=== PATIENT | female | born 1945 | race Caucasian/White ===

== ENCOUNTER 2025-07-26 11:20 | Emergency (ER) | payer MEDICARE, SELFPAY ==
--- OUTSIDE RECORDS SUMMARY | 2025-07-25 13:30 | XMS_ITS | Encounter Summary ---
Author Organization [facility] Address [address] [place] [phone] Care Team Providers Care Conflicts Analyst Name Role Phone Avani Banks MD Primary Care Provider Reason for Visit * Reason Comments Pre-op Exam Encounter Details Date Type Department Care Team (Late st Contact Info) Description 07/25/2025 1:30 PM EDT Consult Urogynecology [address] [phone] Tiffanie Hooks MD 580 [facility] 205 [place] [address] Prolapse of anterior vaginal wall (Primary Dx); [...] Description 08/21/2025 11:30 AM EST Hospital Encounter [facility] OR [address] [place] [address], [place] [phone] Tiffanie Hooks MD [address] [address] 08/21/2025 11:30 AM EST - 08/21/2025 4:30 PM EST Surgery [facility] OR [address] [place] [phone] Tiffanie Hooks MD [address] [address] HYSTERECTOMY VAGINAL BSO [[id number] (CPT )] 09/07/2025 3:15 PM EST Office Visit Urogynecology [address] [phone] Aimee Stevens NP 580 [facility] [address] [place] [address] 09/18/2025 11:00 AM EST Office Visit Adult Medicine [address] [phone] Avani Banks MD [address] [place] [address] 10/03/2025 1:15 PM EST Office Visit Orthopedic Surgery - [address] [phone] Blas Sanchez, DPM [address] [place] [phone] 10/04/2025 11:30 AM EST Office Visit Urogynecology [address] [phone] Tiffanie Hooks MD 580 [facility] [address] [place] [address] Scheduled Procedures Name Priority Associated Diagnoses Date/Ti [...] AM EST documented as of this encounter Goals Goal Patient Goal Type Associated Problems Recent Progress Patient-Stated? Author Autogenera chris Goal Care Plan Autogenerated Problem No Mary Jane Craig documented as of this encounter Visit Diagnoses Diagnosis Prolapse of anterior vaginal wall- Primary Postoperative pain Other acute postoperative pain Uterine prolapse Uterine prolapse without mention of vaginal wall prolapse SARIKA (stress urinary incontinence, female) Uterine prolapse Uterine prolapse without mention of vaginal wall prolapse Cystocele with rectocele Female stress incontinence documented in this encounter Additional Health Concerns Active Problems Noted Date Diagnosed Date Autogenerated Problem 07/23/2025 documented as of this encounter Care Teams Conflicts Analyst Relationship Specialty Start Date End Date Avani Banks MD 4 [place] [address] PCP - General 08/06/09 documented as of this encounter
--- NOTE | ~2025-07-26 | CT_ITS ---
EXAMINATION: CT CHEST ANGIOGRAPHY WITH IV CONTRAST INDICATION: ?chest mass, new onset afib, assess mass, r/o PE COMPARISON: Previous chest x-ray most recent from earlier the same day TECHNIQUE: Helical CT scan of the chest was performed following administration of intravenous contrast (65 mL Omnipaque 350). The contrast bolus was timed to optimally opacify the pulmonary arteries. Thin sections were obtained through the pulmonary arteries. Coronal and sagittal reformatted images were generated. 3D/MIP reconstructed images are also obtained and reviewed. This CT exam was performed with one or more of the following dose reduction techniques: automated exposure control, adjustment of the mA and/or kV according to patient size, use of iterative reconstruction technique. DLP: 201 mGy-cm CHEST: THYROID: The thyroid gland is unremarkable. PULMONARY ARTERIES: No intraluminal filling defects are identified within the pulmonary arteries to suggest pulmonary emboli. Coronary arteries are normal in caliber, main pulmonary artery measuring 2 cm. No evidence of right heart strain. No reflux of contrast into the liver. LUNGS: Elevated right hemidiaphragm. Minimal scarring or subsegmental atelectasis in the right lower lobe. Mild biapical pleural and parenchymal scarring. Lungs are otherwise clear. MEDIASTINUM: There is no mediastinal lymphadenopathy. Perlita esophagus and small esophageal hernia. NAILA: There is no hilar lymphadenopathy. CARDIOVASCULATURE: The heart is normal in size. There is no pericardial effusion. The thoracic aorta is normal in caliber but tortuous with moderate calcification.. DEGREE OF CORONARY CALCIFICATION: moderate PLEURA: There is no pleural effusion. No pneumothorax. Elevated right hemidiaphragm. No mass. MAIN AIRWAYS: The mainstem bronchi and proximal branches are patent. AXILLA: There is no axillary lymphadenopathy. UPPER ABDOMEN: 3.2 cm low-attenuation right renal lesion probably representing a cyst. BONES AND SOFT TISSUES: Degenerative changes of the spine and mild scoliosis. CT/CT angio chest PE protocol IMPRESSION: No evidence of pulmonary embolism. Elevated right hemidiaphragm. No evidence of mass. Patulous esophagus and small esophageal hernia. Electronically signed by: Eliane Patterson MD 07/26/2025 02:30 PM EDT
--- NOTE | ~2025-07-26 | XR_ITS ---
EXAMINATION: XR CHEST 1 VIEW HISTORY: CP COMPARISON: Comparison is made with the prior examination dated 04/17/2019. FINDINGS: A single AP portable view of the chest performed at 12:10 PM is submitted. There is a new rounded density at the right lung base which could represent a diaphragmatic hernia or a pleural mass. The lungs are clear. There is no pleural effusion, pneumothorax, or pulmonary vascular congestion. The heart is normal in size. There is degenerative disc disease of the spine. XR/XR chest 1V IMPRESSION: New rounded density at the right lung base which could represent a diaphragmatic hernia or a pleural mass. Chest CT is recommended. Electronically signed by: Mikhail Martinez MD 07/26/2025 12:25 PM EDT
--- OUTSIDE RECORDS SUMMARY | 2025-07-26 10:00 | XMS_ITS | Encounter Summary ---
Author Organization [facility] Address [address] [place] [address] Care Team Providers Care Sap Integration Architect Name Role Phone Avani Banks MD Primary Care Provider [phone] Reason for Visit * Reason Comments Pre-op Exam Dr Hooks 08/21/25 Hys terectomy Encounter Details Date Type Department Care Team (Late st Contact Info) Description 07/26/2025 10:00 AM EDT Consult Adult Medicine [address] [phone] Avani Banks MD [address] [place] [address] Pre-op examination (Primary Dx); Dizziness; Atrial fibrillation, [...] established that daughter will transport patient to [place] emergency room (at patient/family strong request), without [...] RN - 07/26/2025 10:00 AM EDT Called [facility] with and expect for this pt. New onset A-fib pt. Declining ambulance , daughter will take her . No cp or sob, skin warm and dry , no c/o fever or chills. documented in this encounter Plan of Treatment Upcoming Encounters Date Type Department Care Team (Late st Contact Info) Description 08/21/2025 11:30 AM EST Hospital Encounter [address] [phone] Tiffanie Hooks MD [address] [address] 08/21/2025 11:30 AM EST - 08/21/2025 4:30 PM EST Surgery [address] [phone] Tiffanie Hooks MD [address] [address] HYSTERECTOMY VAGINAL BSO [07684 (CPT )] 09/07/2025 3:15 PM EST Office Visit Urogynecology [address] [phone] Aimee Stevens NP [address] [address] 09/18/2025 11:00 AM EST Office Visit Adult Medicine [address] [phone] Avani Banks MD [address] [place] [address] 10/03/2025 1:15 PM EST Office Visit Orthopedic Surgery - [address] [phone] Blas Sanchez, FRANCISCA [address] [place] [phone] 10/04/2025 11:30 AM EST Office Visit Urogynecology - [place] [address] [place] [phone] Tiffanie Hooks MD [address] [place] [address] [address] [place] [address] Scheduled Procedures Name Priority Associated Diagnoses Date/Ti [...] Jane Craig documented as of this encounter Procedures Procedure Name Priority Date/Time Associated Diagnosis Comments ECG 12-LEAD Routine 07/26/2025 11:23 AM EDT Pre-op examination documented in this encounter Results * ECG 12 lead (07/26/2025 11:23 AM EDT) Narrative Avani Banks MD - 07/26/2025 11:23 AM EDT EKG in my office showed atrial fibrillation with rapid ventricular response of 169, with PVC. Avani Banks MD ECG ORDERABLES Final Result [...] 07/25/2025 07/26/2025 documented as of this encounter Additional Health Concerns Active Problems Noted Date Diagnosed Date Autogenerated Problem 07/23/2025 documented as of this encounter Care Teams Sap Integration Architect Relationship Specialty Start Date End Date Avani Banks MD [address] [place] [address] PCP - General 08/06/09 documented as of this encounter
--- NOTE | 2025-07-26 11:22 | ECG_ITS ---
Test Reason : NEW ONSET AFIB Blood Pressure : */* mmHG Vent. Rate : 108 BPM Atrial Rate : * BPM P-R Int : * ms QRS Dur : 78 ms QT Int : 328 ms P-R-T Axes : * 21 101 degrees QTcB Int : 439 ms Normal sinus rhythm Premature atrial complexes Nonspecific T wave abnormality Abnormal ECG When compared with ECG of 17-Apr-2018 11:55, PACs noted Referred By: Crissy Ramos Electronically Signed By: ATIF BARKER
--- NOTE | 2025-07-26 11:32 | ED_ITS ---
HPI - General Adult General Chief complaint: Arrhythmia/Palpitations Stated complaint: A fib Time Seen by Provider: 07/26/25 11:30 Source: patient, family and RN notes reviewed Mode of arrival: ambulatory Limitations: no limitations History of Present Illness ED Provider: Charlotte Thompson PA-C HPI narrative: This is a 80-year-old female, with a past medical history of depression, who presents emergency department accompanied by her 2 daughters with concerns of abnormal EKG. Patient was at her preop appointment for a total hysterectomy due to uterine prolapse and they performed an EKG which showed that she was in atrial fibrillation. She has no history of AFib. She states that she had an episode of dizziness when she was changing positional changes, however this resolved after several sec of staying still. She states that she has not had any other episodes of dizziness. She does report that over the last several days she has had ?heartburn , however she is otherwise in her usual state of health. She denies any abdominal pain, nausea, vomiting or diarrhea. She denies any chest pain, shortness for breath, weakness, palpitations. No urinary symptoms. No other complaints or concerns at this time. MD complaint: Abnormal EKG Relieving factors: none Exacerbating factors: none Associated symptoms: denies other symptoms Related Data Previous Rx's ?Medication ?Instructions ?Recorded amiodarone 200 mg tablet 200 mg PO BID 30 days #60 ta bs 07/26/25 apixaban 2.5 mg tablet (Eliquis) 2.5 mg PO BID 30 days #60 tabs 07/26/25 Allergies Allergy/AdvReac Type Severity Reaction Status Date / Time oxycodone (Percodan) Allergy Unknown Unknown Verified 07/26/25 11:41 aspirin (From PERCODAN) AdvReac Intermediate BEHAVIORAL Verified 07/26/25 11:41 From PERCODAN AdvReac Intermediate BEHAVIORAL Uncoded 07/26/25 11:41 Review of Systems 2 Review of Systems: Constitutional : No Fever, No Chills ENT/Mouth : No sore throat, No Rhinorrhea Eyes: No Eye Pain, No Swelling, No Redness Cardiovascular : No Chest Pain, No SOB Respiratory : No Cough, No Sputum Gastrointestinal : No Nausea, No Vomiting, No Diarrhea, No abdominal Pain Genitourinary : No Dysuria, No Hematuria Musculoskeletal : No joint pain, No Myalgias, No Joint Swelling Skin : No Skin Lesions Neuro : No Weakness, No Numbness, No Headache All other systems reviewed and are negative Yes all other systems are reviewed and are negative Constitutional: Constitutional: Reports as per [facility] Past Medical History Attestation statement: The following information was validated with the patient. Social History Social History Advance Directives: No Advance Directives Information Provided: Yes Do you have a plan to hurt others: No Plan Physical Exam ED Vital Signs: Vital Signs - 24 hr 07/26/25 11:37 07/26/25 11:46 07/26/25 15:00 Temperature 97.9 F Pulse Rate 101 H 96 84 Respiratory Rate 19 18 17 Blood Pressure 117/81 107/81 114/71 Pulse Oximetry 95 92 95 Oxygen Delivery Method Room Air Room Air Room Air 07/26/25 18:06 Temperature 97.9 F Pulse Rate 89 Respiratory Rate 17 Blood Pressure 122/74 Pulse Oximetry 95 Oxygen Delivery Method Room Air BMI result Body Mass Index 26.6 Const General: cooperative, comfortable and no acute distress Orientation/consciousness: patient oriented x3 Limitations: no limitations [facility] Head: Yes normal to inspection, Yes normocephalic and Yes atraumatic Ears: hearing grossly normal bilaterally General nose exam: Normal external nose present Face and sinus: Yes normal facial exam Mouth: Normal oral and palatal mucosa present, oropharynx normal and moist mucous membranes Throat: Yes posterior oropharynx normal Eyes General: appearance normal, both eyes and all related structures Eyelids: Yes eyelids normal Conjunctivae: conjunctivae normal Sclerae: sclerae normal Pupils: Equal, round and reactive pupils present EOM: EOMs intact bilaterally Neck Neck: Yes normal visual inspection, Yes full ROM and Yes no lymphadenopathy Lymphatic: no lymphadenopathy noted Chest Chest palpation & inspection: normal inspection of the chest Resp Effort & Inspection: normal respiratory effort and able to speak in complete sentences Auscultation: clear to auscultation bilaterally, no crackles, no rales, no rhonchi and no wheezes Cardio Other: Irregularly irregular Heart sounds: S1 normal heart sound present and S2 normal heart sound present GI Other: Abdomen is soft, nontender, nondistended Inspection: Yes normal to inspection Skin General skin exam: no rashes or lesions noted Trauma: no lacerations or abrasions Wounds: no wounds Neuro General: patient oriented x3 and moves all extremities Cranial nerves: Yes Equal, round and reactive pupils present Extrem General: Yes normal to inspection Right upper extremity: normal to inspection Left upper extremity: normal to inspection Right lower extremity: normal to inspection Left lower extremity: normal to inspection Course Course Course Narrative: Rapid medical screening exam was performed. Patient stable at time of evaluation. 80 yo F presented to Afib with RVR from PCP office for preop visit for hysterectomy secondary to uterine prolapse. HR low 100's BP stable. ED provider notified. No cardiac history, no CP or SOB. Endorses dizziness today. Crissy Ramos, DO 07/26/25 1135 Medications Administered Discontinued Medications Generic Name Dose Route Start Last Admin Trade Name Freq PRN Reason Stop Dose Admin Amiodarone HCl 200 mg 07/26/25 16:22 07/26/25 17:20 Amiodarone Hcl 200 Mg Tablet PO 07/26/25 16:23 200 mg ONCE ONE Administration Apixaban 2.5 mg 07/26/25 16:22 07/26/25 17:20 Apixaban 2.5 Mg Tablet PO 07/26/25 16:23 2.5 mg ONCE ONE Administration Medical Decision Making Medical Decision Making [facility] Narrative: This is a 80-year-old female, with a past medical history of depression, who presents emergency department accompanied by her 2 daughters with concerns of abnormal EKG. On arrival, patient is well-appearing, appears to be under no acute distress. She is neurologically intact. She does report an episode of dizziness which only lasted for several sec and occurred with a positional change. While she was at a appointment earlier today she she had a concerning EKG as she had a rate of 169, in rhythm is concerning for possible AFib or a flutter. Repeat EKG upon arrival revealed that patient does have discernible P waves, unclear if this is a true AFib or sinus rhythm with PACs. Will obtain labs, monitor on work order clerk, obtain troponin, chest x-ray. We will continue to closely monitor and obtain Cardiology consultation for recommendations. 6:39 PM 07/26/2025 (Charlotte Thompson PA-C): Throughout patient's entire emergency department stay, she has been rate controlled, fluctuating between 80 and 100. She never had any episodes in which she was tachycardic, or a had any episodes of AFib or a flutter while she was here. Chest x-ray revealed possible chest mass versus hemidiaphragm, therefore we ordered a CTA to rule out mass. I discussed this with Dr. Ramos - ordered a CTA to rule out PE versus malignancy as if she truly has AFib she is at increased risk for PE, and if this is a true vas, this also causes her to be hypercoagulable. CTA does not show any evidence of a mass or pulmonary embolism. She does have a patulous esophagus and small esophageal hernia. I discussed this case with Dr. Cruz, who reviewed all EKGs, EKGs here in the department he state are sinus rhythm with PACs, and the 1st EKG may have been flutter. Given that patient has been asymptomatic, she is feeling well, normal troponins, Dr. Cruz states that she can go giving Eliquis 2.5 milligrams twice a day and amiodarone 200 milligrams twice a day. She will follow-up outpatient. I discussed this with my attending physician, who is in agreement with disposition. I discussed overall workup with patient as well as daughters at bedside. They understand and agree with this plan. Given strict precautions with being on anticoagulation. She understands the risks and benefits and would like to proceed with anticoagulation. Platelets as well as PT INR within normal limits. Patient was given the 1st dose in the department and she tolerated this well. Patient discharged with strict return precautions. EKG from outpatient preop appointment: Differential Diagnosis Differential Diagnoses: The differential diagnosis associated with the presentation includes AFib, a flutter, electrolyte derangement, PE Admission/Observation Consideration of admission/observation: Escalation of care including admission/observation considered Consult Healthcare Provider Management of the patient was discussed with: Manager Community Relations Dr. Cruz, cardiology Lab Data [facility] Lab Attestation statement: I reviewed the patient's lab results. Patient with no leukocytosis, stable H&H, chemistry within normal limits, TSH within normal limits. BNP normal for patient's age. Flat troponin. 07/26/25 11:39 07/26/25 11:39 Labs: Lab Results 07/26/25 07/26/25 07/26/25 Range/Units 11:39 11:39 15:38 WBC 8.1 (4.8-10.8) X10*3/uL RBC 4.90 (4.20-5.50) X10*6/uL Hgb 14.0 (12.0-16.0) g/dl Hct 43.2 (37.0-47.0) % MCV 88.2 (80.0-98.0) fL MCH 28.6 (27.0-33.0) pg MCHC 32.4 (31.0-35.0) g/dl RDW 12.5 (11.0-16.0) % Plt Count 420 H (160-400) X10*3/uL MPV 8.8 L (9.4-12.3) fL Immature Gran % (Auto) 1.1 H (0.0-0.4) % Neut % (Auto) 76.3 H (45-73) % Lymph % (Auto) 13.4 L (20-40) % [place] % (Auto) 7.5 (2-11) % Eos % (Auto) 1.1 (0-4) % Baso % (Auto) 0.6 (0-2) % Lymph # (Auto) 1.1 L (1.2-4.9) X10*3/uL [place] # (Auto) 0.6 (0.1-1.2) X10*3/uL Eos # (Auto) 0.1 (0.0-0.4) X10*3/uL Baso # (Auto) 0.1 (0.0-0.2) X10*3/uL Abs Immat Gran (auto) 0.09 H (0.00-0.03) X10*3/uL Absolute Neuts (auto) 6.2 (2.0-8.3) x10*3/uL Absolute Nucleated RBC 0.000 (0.0-0.012) X10*3/uL Nucleated RBC % (auto) 0.0 (0.0-0.2) /100WBC PT 11.3 (10.9-12.4) SEC INR 1.0 (0.9-1.1) APTT 28.6 (26.7-34.1) SEC Sodium 143 (135-145) mmol/L Potassium 4.1 (3.3-5.1) mmol/L Chloride 108 (96-108) mmol/L Carbon Dioxide 28 (22-29) mmol/L Anion Gap 11 L (12-20) BUN 33 H (9-16) mg/dL Creatinine 1.21 (0.5-1.4) mg/dL Estim Creat Clear Calc 29.9 Estimated GFR 43 Random Glucose 108 (60-115) mg/dL Calcium 9.6 (8.4-10.2) mg/dL Magnesium 1.9 (1.6-2.6) mg/dL Total Bilirubin 0.5 (0.0-1.0) mg/dL Direct Bilirubin 0.2 (0.0-0.5) mg/dL AST 25 (5-31) U/L ALT 15 (0-31) U/L Alkaline Phosphatase 60 (39-117) U/L Troponin I High Sens Cancelled 6.3 6.8 NT-Pro-B Natriuret Pep 925.0 H (<300) pg/mL Total Protein 7.4 (6.5-8.0) g/dL Albumin 4.1 (3.5-5.0) g/dL Lipase 14 (8-78) U/L TSH 2.33 (0.32-4.0) uIU/mL Independent Interpretation I performed an independent interpretation of an: EKG Interpretation: EKG performed 1126 reveal a ventricular rate of 108 beats per minute, it appears that patient does have P-waves, ventricular rate of 108 beats per minute, QT QTC 328/439, occasional PACs. ? A regularly irregular versus sinus rhythm with PACs EKG performed at 15 40 discernible P-waves noted, ventricular rate of 86 beats per minute, QT QTC 364 no STEMI. Occasional PACs Radiology Impression Discussion of test interpretation with radiology: I have reviewed the radiologist's reading. Radiologist Impression: NDICATION: ?chest mass, new onset afib, assess mass, r/o PE COMPARISON: Previous chest x-ray most recent from earlier the same day TECHNIQUE: Helical CT scan of the chest was performed following administration of intravenous contrast (65 mL Omnipaque 350). The contrast bolus was timed to optimally opacify the pulmonary arteries. Thin sections were obtained through the pulmonary arteries. Coronal and sagittal reformatted images were generated. 3D/MIP reconstructed images are also obtained and reviewed. This CT exam was performed with one or more of the following dose reduction techniques: automated exposure control, adjustment of the mA and/or kV according to patient size, use of iterative reconstruction technique. DLP: 201 mGy-cm CHEST: THYROID: The thyroid gland is unremarkable. PULMONARY ARTERIES: No intraluminal filling defects are identified within the pulmonary arteries to suggest pulmonary emboli. Coronary arteries are normal in caliber, main pulmonary artery measuring 2 cm. No evidence of right heart strain. No reflux of contrast into the liver. LUNGS: Elevated right hemidiaphragm. Minimal scarring or subsegmental atelectasis in the right lower lobe. Mild biapical pleural and parenchymal scarring. Lungs are otherwise clear. MEDIASTINUM: There is no mediastinal lymphadenopathy. Perlita esophagus and small esophageal hernia. NAILA: There is no hilar lymphadenopathy. CARDIOVASCULATURE: The heart is normal in size. There is no pericardial effusion. The thoracic aorta is normal in caliber but tortuous with moderate calcification.. DEGREE OF CORONARY CALCIFICATION: moderate PLEURA: There is no pleural effusion. No pneumothorax. Elevated right hemidiaphragm. No mass. MAIN AIRWAYS: The mainstem bronchi and proximal branches are patent. AXILLA: There is no axillary lymphadenopathy. UPPER ABDOMEN: 3.2 cm low-attenuation right renal lesion probably representing a cyst. BONES AND SOFT TISSUES: Degenerative changes of the spine and mild scoliosis. CT/CT angio chest PE protocol IMPRESSION: No evidence of pulmonary embolism. Elevated right hemidiaphragm. No evidence of mass. Patulous esophagus and small esophageal hernia. Electronically signed by: Eliane Patterson MD 07/26/2025 02:30 PM EDT Dictated By: Eliane Patterson MD Signed By: <Electronically signed by Eliane Patterson MD in OV> EXAMINATION: XR CHEST 1 VIEW HISTORY: CP COMPARISON: Comparison is made with the prior examination dated 04/17/2019. FINDINGS: A single AP portable view of the chest performed at 12:10 PM is submitted. There is a new rounded density at the right lung base which could represent a diaphragmatic hernia or a pleural mass. The lungs are clear. There is no pleural effusion, pneumothorax, or pulmonary vascular congestion. The heart is normal in size. There is degenerative disc disease of the spine. XR/XR chest 1V IMPRESSION: New rounded density at the right lung base which could represent a diaphragmatic hernia or a pleural mass. Chest CT is recommended. Electronically signed by: Mikhail Martinez MD 07/26/2025 12:25 PM EDT Dictated By: Mikhail Martinez MD Critical Care Time Critical Care Time Critical Care Time: Yes Total Critical Care Time: 45 Attestation: I have personally provided critical care time exclusive of time spent on separately billable procedures. Time includes review of lab data, radiology results, discussion with consultants, and monitoring for potential decompensation. Intervention performed as documented. Discharge Plan Discharge Clinical Impression: Arrhythmia, Atrial fibrillation Patient Disposition: Home, Self-Care Instructions: Atrial Flutter (ED) Additional Instructions: You were seen in the emergency department after a concerning EKG during your preop visit. Your EKGs were reviewed by the dry finisher, the 1st EKG that they reviewed was concerning for possible atrial flutter or atrial fibrillation which is a type of arrhythmia. Your other 2 EKGs did not reveal a true atrial fibrillation. The dry finisher recommends starting you on a blood thinner as well as a antiarrhythmic medication. Eliquis as a blood thinner to be taken twice a day. Please be advised that this increases your risk of bleeding, if you are to fall and hit your head, or have excessive bleeding, please seek emergent care. Amiodarone is an antiarrhythmic medication. Please take this as prescribed. Please follow-up with Cardiology, call tomorrow to make an appointment. If any new or worsening symptoms occur including but not limited to severe chest pain, shortness of breath, dizziness, blurred vision, severe headache, please seek emergent care. Prescriptions: New Eliquis 2.5 mg tablet 2.5 mg PO BID 30 Days Qty: 60 0RF amiodarone 200 mg tablet 200 mg PO BID 30 Days Qty: 60 0RF Referrals: [facility] [Provider Group] Interventions: ED Discharge Assessment Last Done: 07/26/25 18:06 Discharge Date/Time: 07/26/25 18:11 Print Language: Cuban
[2025-07-26 11:37] VITALS: BP 117/81; PULSE 101; RESP 19; TEMP 36.6; O2SAT 95; BMI 26.6
[2025-07-26 11:43] LABS: MANUAL DIFF FLAG NO
[2025-07-26 11:46] VITALS: BP 107/81; PULSE 96; RESP 18; O2SAT 92
[2025-07-26 11:50] LABS: Hematocrit 43.2 % (37.0-47.0); Hemoglobin 14.0 g/dl (12.0-16.0); Imm Gran Abs Auto 0.09 X10*3/uL (0.00-0.03); Imm Gran Pct Auto 1.1 % (0.0-0.4); Lymphocytes Absolute Auto 1.1 X10*3/uL (1.2-4.9); Mean Corpuscular HGB Conc 32.4 g/dl (31.0-35.0); Mean Corpuscular Hemoglobin 28.6 pg (27.0-33.0); Mean Corpuscular Volume 88.2 fL (80.0-98.0); NRBC Abs Auto 0.000 X10*3/uL (0.0-0.012); NRBC Pct Auto 0.0 /100WBC (0.0-0.2); Platelet Count 420 X10*3/uL (160-400); Red Blood Count 4.90 X10*6/uL (4.20-5.50); White Blood Count 8.1 X10*3/uL (4.8-10.8)
[2025-07-26 11:56] LABS: INTERNATIONAL NORM RATIO 1.0 (0.9-1.1); Prothrombin Time 11.3 SEC (10.9-12.4)
[2025-07-26 11:59] LABS: Partial Thromboplastin Time 28.6 SEC (26.7-34.1)
[2025-07-26 12:06] LABS: Alanine Aminotransferase 15 U/L (0-31); Albumin Level 4.1 g/dL (3.5-5.0); Alkaline Phosphatase 60 U/L (39-117); Anion Gap 11 (12-20); Aspartate Amino Transferase 25 U/L (5-31); Blood Urea Nitrogen 33 mg/dL (9-16); Calcium 9.6 mg/dL (8.4-10.2); Carbon Dioxide 28 mmol/L (22-29); Chloride 108 mmol/L (96-108); Creatinine Clr Calc Pharmacy 29.9; Estimated Glomerular Filt Rate 43; Lipase 14 U/L (8-78); Magnesium 1.9 mg/dL (1.6-2.6); Potassium 4.1 mmol/L (3.3-5.1); Sodium 143 mmol/L (135-145); Total Protein 7.4 g/dL (6.5-8.0)
[2025-07-26 12:08] LABS: NT Pro B Type Natriuretic Pept 925.0 pg/mL (<300); Troponin-I High Sensitivity 6.3 ng/L (<3.5-17.0)
--- NOTE | 2025-07-26 14:45 | ECG_ITS ---
Test Reason : REPEAT Blood Pressure : */* mmHG Vent. Rate : 86 BPM Atrial Rate : * BPM P-R Int : * ms QRS Dur : 86 ms QT Int : 364 ms P-R-T Axes : * 36 109 degrees QTcB Int : 435 ms Normal sinus rhythm Premature atrial complexes Premature ventricular complexes Nonspecific T wave abnormality Abnormal ECG When compared with ECG of 26-Jul-2025 11:26, No significant change was found Referred By: Charlotte Thompson Electronically Signed By: ATIF BARKER
[2025-07-26 15:00] VITALS: BP 114/71; PULSE 84; RESP 17; O2SAT 95
--- OUTSIDE RECORDS SUMMARY | 2025-07-26 15:45 | XMS_ITS | Encounter Summary ---
Author Organization [facility] Address [address] [place] [phone] Care Team Providers Care Retail Client Manager Name Role Phone Avani Banks MD Primary Care Provider [phone] Encounter Details Date Type Department Care Team (Late st Contact Info) Description 07/13/2025 Results Follow-Up Urogynecology - [address] [place] [phone] Palak Steele RN Social History Tobacco Use Types Packs/Day Years [...] on file documented as of this encounter Plan of Treatment Upcoming Encounters Date Type Department Care Team (Late st Contact Info) Description 08/21/2025 11:30 AM EST Hospital Encounter [facility] [place] [address] [place] [phone] Tiffanie Hooks MD [address] [address] 08/21/2025 11:30 AM EST - 08/21/2025 4:30 PM EST Surgery [facility] [place] [address] [place] [phone] Tiffanie Hooks MD [address] [address] HYSTERECTOMY VAGINAL BSO [03435 (CPT )] 09/07/2025 3:15 PM EST Office Visit Urogynecology [address] [phone] Aimee Stevens NP [address] [address] 09/18/2025 11:00 AM EST Office Visit Adult Medicine [address] [phone] Avani Banks MD [address] [place] [address] 10/03/2025 1:15 PM EST Office Visit Orthopedic Surgery [address] [phone] Blas Sanchez, M [address] [place] [phone] 10/04/2025 11:30 AM EST Office Visit Urogynecology [address] [phone] Tiffanie Hooks MD [address] [address] Scheduled Procedures Name Priority Associated Diagnoses Date/Ti [...] documented as of this encounter Visit Diagnoses Not on filedocumented in this encounter Care Teams Retail Client Manager Relationship Specialty Start Date End Date Avani Banks MD [address] [place] [address] PCP - General 08/06/09 documented as of this encounter
--- OUTSIDE RECORDS SUMMARY | 2025-07-26 15:45 | XMS_ITS | Encounter Summary ---
Author Organization [facility] Address [id number] [place] [phone] Care Team Providers Care Plycor Operator Name Role Phone Avani Banks MD Primary Care Provider [phone] Reason for Visit * Reason Onset Date Comments call back 07/21/2025 Encounter Details Date Type Department Care Team (Late st Contact Info) Description 07/21/2025 Telephone Urogynecology - [place] [address] [place] [phone] Tiffanie Hooks MD 580 [facility] [address] [place] [address] Social History Tobacco Use Types Packs/Day Years [...] on file documented as of this encounter Progress Notes * Eve Colon - 07/21/2025 8:47 AM EDT Pt is calling she thinks she may have a missed call from Uro/trim sawyer. Can someone please call her back? documented in this encounter Plan of Treatment Upcoming Encounters Date Type Department Care Team (Late st Contact Info) Description 08/21/2025 11:30 AM EST Hospital Encounter [facility] [place] [address] [place] [phone] Tiffanie Hooks MD [address] [address] 08/21/2025 11:30 AM EST - 08/21/2025 4:30 PM EST Surgery [facility] OR [address] [place] [address], [place] [phone] Tiffanie Hooks MD [address] [address] HYSTERECTOMY VAGINAL BSO [70902 (CPT )] 09/07/2025 3:15 PM EST Office Visit Urogynecology [address] [phone] Aimee Stevens NP [address] [address] 09/18/2025 11:00 AM EST Office Visit Adult Medicine [address] [phone] Avani Banks MD [address] [place] [address] 10/03/2025 1:15 PM EST Office Visit Orthopedic Surgery [address] [phone] Blas Sanchez DPM [address] [place] [phone] 10/04/2025 11:30 AM EST Office Visit Urogynecology [address] [phone] Tiffanie Hooks MD [address] [address] Scheduled Procedures Name Priority Associated Diagnoses Date/Ti [...] on filedocumented in this encounter Care Teams Plycor Operator Relationship Specialty Start Date End Date Avani Banks MD [address] [place] [phone] PCP - General 08/06/09 documented as of this encounter
--- OUTSIDE RECORDS SUMMARY | 2025-07-26 15:46 | XMS_ITS | Encounter Summary ---
Author Organization [facility] Address [address] [place] [phone] Care Team Providers Care Gear Shaper Set Up Operator Name Role Phone Avani Banks MD Primary Care Provider [phone] Reason for Visit * Reason Onset Date Comments Medication Problem 07/25/2025 Encounter Details Date Type Department Care Team (Late st Contact Info) Description 07/25/2025 Telephone Urogynecology - [place] [address] [place] [phone] Tiffanie Hooks MD 580 [facility] [address] [place], [place] [phone] Social History Tobacco Use Types Packs/Day Years [...] as of this encounter Progress Notes * Tiffanie Hooks MD - 07/25/2025 4:12 PM EDT Called and spoke to pharmacy and said it was okay for Nan to take to take ibuprofen and tramadol for postoperative pain while taking venlafaxine for acute postoperative pain. Tiffanie Hooks MD 07/25/2025 * Eve Colon - 07/25/2025 3:42 PM EDT Pt's pharmacy is calling to inform us pt's medications Tramadol 50mg and Ibuprofen 800mg is interacting with their mediation Venlafaxine 50mg. They're asking for a call back before they refill any meds. Please advise documented in this encounter Plan of Treatment Upcoming Encounters Date Type Department Care Team (Late st Contact Info) Description 08/21/2025 11:30 AM EST Hospital Encounter [facility] [place] [address] [place] [phone] Tiffanie Hooks MD [address] [address] 08/21/2025 11:30 AM EST - 08/21/2025 4:30 PM EST Surgery [facility] [place] [address] [place] [address], [place] [phone] Tiffanie Hooks MD [address] [address] HYSTERECTOMY VAGINAL BSO [85627 (CPT )] 09/07/2025 3:15 PM EST Office Visit Urogynecology - [address] [phone] Aimee Stevens NP [address] [address] 09/18/2025 11:00 AM EST Office Visit Adult Medicine [place] - [address] [phone] Avani Banks MD [address] [place] [address] 10/03/2025 1:15 PM EST Office Visit Orthopedic Surgery - [place] [address] [place] [phone] Blas Sanchez, DPM [address] [place] [phone] 10/04/2025 11:30 AM EST Office Visit Urogynecology [address] [phone] Tiffanie Hooks MD [address] [place] [phone] Scheduled Procedures Name Priority Associated Diagnoses Date/Ti [...] Diagnoses Not on filedocumented in this encounter Additional Health Concerns Active Problems Noted Date Diagnosed Date Autogenerated Problem 07/23/2025 documented as of this encounter Care Teams Gear Shaper Set Up Operator Relationship Specialty Start Date End Date Avani Banks MD [address] [place] [phone] PCP - General 08/06/09 documented as of this encounter
--- OUTSIDE RECORDS SUMMARY | 2025-07-26 15:46 | XMS_ITS | Clinical Summary ---
Author Organization [facility] [address] [place] [address] [place] [phone] Phone Care Team Providers Care Livestock Inspector Name Role Phone Avani Banks MD Primary Care Provider [phone] Allergies Active Allergy Reactions Criticality Noted Date Comments Oxycodone-Aspirin Other 05/14/2007 Medications latanoprost (XALATAN) 0.005 % ophthalmic solution Administer 1 drop into both eyes at bedtime. Prescribed in opthalmology Active simvastatin (ZOCOR) 40 mg tablet TAKE ONE TABLET BY MOUTH DAILY AT BEDTIME 90 tablet 1 03/02/20 25 Active estradioL (ESTRACE) 0.01 % (0.1 mg/gram) vaginal cream Insert 0.5 g into the vagina 1 (one) time each day. Please place 0.5g (a pea-sized amount) on your finger and place inside the vagina for 2 weeks at night, and then twice a week at night 42.5 g 3 03/27/20 25 Active cholecalcifero l (VITAMIN D-3) 50 mcg (2,000 unit) tablet TAKE ONE TABLET BY MOUTH EVERY DAY 90 tablet 1 05/03/20 25 Active venlafaxine (EFFEXOR) 50 mg tablet Take 1 tablet (50 mg total) by mouth 1 (one) time each day. 90 tablet 1 06/19/20 25 Active buPROPion (WELLBUTRIN) 75 mg tablet Take 1 tablet (75 mg total) by mouth 1 (one) time each day. 90 tablet 1 06/19/20 25 Active ketoconazole (NIZORAL) 2 % shampoo Apply thin film to scalp, leave on for 5 minutes, then rinse daily for 3 months 60 mL 2 06/19/20 Active hydrocortisone 2.5 % cream Apply topically 2 (two) times a day if needed for irritation or rash. 30 g 2 06/19/20 25 Active docusate sodium (Colace) 100 mg capsule Take 1 capsule (100 mg total) by mouth 2 (two) times a day. 180 capsule 1 06/19/20 25 Active ammonium lactate (AmLactin) 12 % lotion Apply topically if needed for dry skin. 400 g 07/03/20 25 Active trospium (SANCTURA) 20 mg tablet Take 1 tablet (20 mg total) by mouth 2 (two) times a day. 180 each 07/18/20 25 Active ibuprofen (ADVIL,MOTRIN) 800 mg tablet Take 1 tablet (800 mg total) by mouth every 8 (eight) hours. Take 800mg every 8 hours for the first few days after surgery - stagger with acetaminophen - then as needed 60 tablet 1 07/25/20 Active polyethylene glycol (PEG) 17 gram/dose oral powder Take 17 g by mouth 1 (one) time each day. Please take daily after surgery 116 g 1 07/25/20 Active traMADoL (ULTRAM) 50 mg tabletIndicati ons:pain Take 0.5 tablets (25 mg total) by mouth every 8 (eight) hours if needed for severe pain. Max Daily Amount: 75 mg 5 tablet 07/25/20 Active acetaminophen (TYLENOL) 500 mg tablet Take 1 tablet (500 mg total) by mouth every 8 (eight) hours. Please take two tablets every 8 hours for the first few days after surgery, then as needed 60 tablet 1 07/25/20 25 Active trospium (SANCTURA) 20 mg tablet Take 1 tablet (20 mg total) by mouth 2 (two) times a day. 180 each 1 04/18/20 25 025 Discontinu ed(Reorder ) predniSONE (DELTASONE) 20 mg tablet Take 60 mg PO daily for 3 days, then take 40 mg PO daily for 3 days, then 20 mg PO daily for 3 days, then stop 18 tablet 06/19/20 25 025 Discontinu ed(Therapy completed) nitrofurantoin , macrocrystal-m onohydrate, (MACROBID) 100 mg capsule Take 1 capsule (100 mg total) by mouth 2 (two) times a day for 5 days. 10 each 07/12/20 25 025 docusate sodium (COLACE) 100 mg capsule Take 1 capsule (100 mg total) by mouth 2 (two) times a day. Please take one capsule twice daily after surgery 60 each 1 07/25/20 25 025 Discontinu ed(Duplica te order) Active Problems Problem Noted Date Diagnosed Date Hematuria 12/21/2019 Overview (07/08/2024): Last Assessment & Plan: Urine sent for culture and cytology. Referred to Urology as has not resolved. Polymyalgia rheumatica ([facility] V24) 03/30/2013 Overview (07/08/2024): Onset November 2012, helped with prednisone, tapered off in early 2013. Osteoarthritis, 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 Cervical osteoarthritis 01/28/2013 Pure hypercholesterolemia 11/04/2010 Osteoporosis 02/12/2010 Depression 02/12/2010 Overview (07/08/2024): Hx ECT in 2000 Encounters Date Type Department Care Team Description 07/26/2025 10:00 AM EDT Consult Adult Medicine [address] [phone] Avani Banks MD Pre-op examination (Primary Dx); Dizziness; Atrial fibrillation, unspecified type ([facility] V24, [facility] V28) 07/25/2025 1:30 PM EDT Consult Urogynecology [address] [phone] Tiffanie Hooks MD Prolapse of anterior vaginal wall (Primary Dx); Postoperative pain; Uterine prolapse; SARIKA (stress urinary incontinence, female) 07/25/2025 Telephone Urogynecology - [address]/ [place] [address] Tiffanie Hooks MD 07/21/2025 Telephone Urogynecology [address] [place] [address] Tiffanie Hooks MD 07/18/2025 11:00 AM EDT Office Visit Urogynecolog[address] [place] [address] Aimee Stevens NP Tirone, Taylor, RN Detrusor overactivity (Primary Dx); SARIKA (stress urinary incontinence, female); Weak urinary stream 07/13/2025 Results Follow-Up Urogyne[address] [place] [address] Palak Steele RN 07/12/2025 1:00 PM EDT Office Visit Urogyne[address] [place] [address] Aimee Stevens NP Tirone, Taylor, RN Acute cystitis without hematuria (Primary Dx); Urinary tract infection without hematuria, site unspecified 07/03/2025 1:00 PM EDT Office Visit Orthopedic Surgery [address] [phone] Blas Sanchez DPM Primary osteoarthritis of both feet (Primary Dx); Acquired hallux valgus of left foot; Acquired hallux valgus of right foot; Dermatophytosis of nail; Pain in toe of right foot; Pain in toe of left foot; Hammer toe of left foot; Acquired hammer toe of right foot; Xerosis of skin; Difficulty walking [R26.2] 06/19/2025 1:00 PM EDT Office Visit [address] [phone] Hanna Rodriguez NP Chronic pain of both knees (Primary Dx); Pseudogout; Seborrheic eczema of scalp; Constipation, unspecified constipation type; Hypotension, unspecified hypotension type 06/06/2025 11:30 AM EDT Office Visit Urogynecology - [place] [address] [place] [address] Tiffanie Hooks MD Uterine prolapse (Primary Dx); Prolapse of anterior vaginal wall; Genitourinary syndrome of menopause 06/06/2025 Telephone Urogynecology [facility] [address] [place] [address] Tiffanie Hooks MD from Last 3 Months Immunizations Immunization Administration Dates Next Due Influenza trivalent, 0.5mL ( Fluad) 65yo and older 08/18/2024 Influenza trivalent, 0.5mL ( Fluzone High-dose) 65yo and older 08/18/2023,06/25/2021,06/27/2020,07/19,06/26/2017,08/30/2016 Influenza trivalent, with pr eservative (Fluzone; Afluria) 6mo and older 06/28/2018,09/05/2015,09/01/2014,07/15,09/10/2011,11/04/2010 Influenza, Unspecified 06/28/2018,08/30/2016 Pfizer SARS-CoV-2 COVID-19, mRNA, LNP-S, preservative free 07/28/2022 Pneumococcal conjugate 13 va lent (Prevnar 13, PCV13) 2mo and older 03/19/2018 Pneumococcal conjugate 20 va lent (Prevnar 20, PCV 20) 2mo and older 11/24/2023 Pneumococcal polysaccharide 23 valent (Pneumovax 23) 2yo and older 09/28/2006 Tdap Tetanus diptheria acell ular pertussis (Boostrix; Adacel) 7yo and older 11/24/2023,02/12/2010 Tetanus Toxoid, Unspecified 09/28/2002 Zoster Live 08/12/2015 Surgical History Surgery Date Site/Laterality Comments CATARACT EXTRACTION PROCEDURE: HISTORICAL CATARACT REMOVAL; COMMENT: bilateral COLONOSCOPY 2000 PROCEDURE: HISTORICAL COLONOSCOPY; COMMENT: negative COLONOSCOPY 2002 PROCEDURE: HISTORICAL COLONOSCOPY; COMMENT: [place]; negative COLONOSCOPY 2013 PROCEDURE: [place] COLONOSCOPY FLX DX W/COLLJ SPEC WHEN PFRMD; COMMENT: no polyps OTHER SURGICAL HISTORY PROCEDURE: HISTORICAL MELANOMA Medical History Medical History Date Comments Depression 02/12/2010 DX:Depression Osteoporosis 02/12/2010 DX:Osteoporosis BCC (basal cell carcinoma of skin) 02/12/2010 DX:BCC (basal cell carcinoma of skin) Pure hypercholesterolemia DX:Pur e hypercholesterolemia Other specified personal his tory presenting hazards to health(V15.89) DX:Other specifie d personal history presenting hazards to health(V15.89); COMMENT: skin ca History of basal cell carcin komal of skin 02/12/2010 DX:History of basal cell car cinoma of skin; COMMENT: BCC - 2007 chest - 2001 under left eye Family History Medical History Relation Name Comments Breast cancer Aunt 1 p half-aunt 40s x2 paternal Other: sudden at age 70' Aunt 2 no details at all Colon cancer Aunt 3 Other: Alzheimer's Father at 8 7 Arthritis Maternal Grandmother Arthritis Mother Other: pancreatic cancer Mother d at 84 Pancreatic cancer Mother Ovarian cancer Neg Hx Prostate cancer Neg Hx Uterine cancer Neg Hx Relation Name Status Comments Aunt 1 p half-aunt 40s Aunt 2 Aunt 3 Father Maternal Grandmother Mother Social History Tobacco Use Types Packs/Day Years [...] on file Sexual Orientation Not on file Obstetrics History Para Term AB IAB SAB Ectopic Multiple Livin g Live Births 15 15 15 15 Date Outcome GA Total Labor Labor/2nd/3rd Weight Sex Type Anes PTL Lynne A1 A5 Name Clin Term Term Term Term Term Term Term Term Term Term Term Term Term Term Term Last Filed Vital Signs Vital Sign Reading [...] Mass Index 25.04 07/26/2025 10:20 AM EDT Plan of Treatment Upcoming Encounters Date Type Department Care Team (Late st Contact Info) Description 08/21/2025 11:30 AM EST Hospital Encounter [facility] [place] [address] [place] [address], [place] [phone] Tiffanie Hooks MD [address] [address] 08/21/2025 11:30 AM EST - 08/21/2025 4:30 PM EST Surgery [facility] [place] [address] [place] [address], [place] [phone] Tiffanie Hooks MD [address] [address] HYSTERECTOMY VAGINAL BSO [[id number] (CPT )] 09/07/2025 3:15 PM EST Office Visit Urogynecology - [address] [phone] Aimee Stevens NP [address] [address] 09/18/2025 11:00 AM EST Office Visit Adult Medicine [place] - [address] [phone] Avani Banks MD [address] [place] [address] 10/03/2025 1:15 PM EST Office Visit Orthopedic Surgery - [address] [phone] Blas Sanchez, DPM [address] [place] [phone] 10/04/2025 11:30 AM EST Office Visit Urogynecology - [place] [address] [place] [phone] Tiffanie Hooks MD [address] [place] [address] [address] [place] [address] Scheduled Procedures Name Priority Associated Diagnoses Date/Ti [...] Female stress incontinence 08/21/2025 11:30 AM EST Health Maintenance Due Date Last Done Comments Zoster Vaccines (1 of 2) 10/07/2015 08/12/2015 RSV Immunization Adult Patients (1 - 1-dose 75+ series) 2019 Social Influencers of Health Screening 09/06/2022 Depression Screening 09/28/2024 02/16/2024 Falls Risk Assessment 02/15/2025 02/16/2024 Medicare Annual Wellness Visit 02/15/2025 02/16/2024 COVID-19 Vaccine (6 - Pfizer risk 2023- season) 2026 07/07/2025, 07/28/2022, 06/26/2021, Additional history exists Cholesterol Screening (Lipid Panel) 02/02/2030 02/02/2025, 08/11/2024, 02/03/2023 Osteoporosis Screening (Bone Density Screening) 12/22/2032 12/22/2022, 03/23/2019 DTaP,Tdap,and Td Vaccines (3 - Td or Tdap) 11/24/2033 11/24/2023, 02/12/2010 Pneumococcal Vaccine: 50+ Years Completed 11/24/2023, 03/19/2018, 09/28/2006 Influenza Vaccine Completed 07/07/2025, , 08/18/2023, Additional history exists HIB Vaccines Aged Out No longer eligi ble based on patient's age to complete this topic HPV Vaccines Aged Out No longer eligi ble based on patient's age to complete this topic Hepatitis A Vaccines Aged Out No long er eligible based on patient's age to complete this topic Hepatitis B Vaccines Aged Out No long er eligible based on patient's age to complete this topic IPV Vaccines Aged Out No longer eligi ble based on patient's age to complete this topic MMR Vaccines Aged Out No longer eligi ble based on patient's age to complete this topic Meningococcal ACWY Vaccine Aged Out N o longer eligible based on patient's age to complete this topic Meningococcal B Vaccine Aged Out No l onger eligible based on patient's age to complete this topic RSV Immunization Patients Under 20 months Aged Out No longer eligible based on patient's age to complete this topic Varicella Vaccines Aged Out No longer eligible based on patient's age to complete this topic Goals Goal Patient Goal Type Associated Problems Recent Progress Patient-Stated? Author Autogenera chris Goal Care Plan Autogenerated Problem No Mary Jane Craig Procedures Procedure Name Priority Date/Time Associated Diagnosis Comments ECG 12-LEAD Routine 07/26/2025 11:23 AM EDT Pre-op examination CULTURE URINE Routine 07/12/2025 4:08 PM EDT Urinary tract infection without hematuria, site unspecified LIPID PANEL WITH REFLEX TO DIRECT LDL Routine 02/02/2025 10:16 AM EDT Pure hypercholesterolemia DEPRESSION SCREENING Routine 02/16/2024 FALLS RISK ASSESSMENT Routine 02/16/2024 DXA BONE DENSITY STUDY 1+ SITS AXIAL SKEL Routine 12/22/2022 1:57 PM EDT Age-related osteoporosis without current pathological fracture from Last 3 Months or Most Recently Relevant to Health Maintenance Results * ECG 12 lead (07/26/2025 11:23 AM EDT) Narrative Avani Banks MD - 07/26/2025 11:23 AM EDT EKG in my office showed atrial fibrillation with rapid ventricular response of 169, with PVC. Avani Banks MD ECG ORDERABLES Final Result * (ABNORMAL) Culture urine (07/12/2025 4:08 PM EDT) Pathologist [facility] Culture, Urine >=100,000 CFU/mL Enterococcus faecalis(A) FLAKITA 07/14/2025 11:53 AM EDT [facility] Comment: The organism value for this result has been updated. These results have been appended to the previously preliminary verified report. Edited result: Previously reported as Gram Positive Cocci on 07/13/2025 at 2254 EDT. Urine Urinary bladder structure / Unknown Non-blood Collection / Unknown 07/12/2025 4:08 PM EDT 07/12/2025 4:08 PM EDT Narrative Organism Antibiotic Method Susceptibility Enterococcus faecalis Ampicillin FLAKITA <=2 ug/ml: Susceptible Enterococcus faecalis Nitrofurantoin FLAKITA <=16 ug/ml: Susceptible Enterococcus faecalis Vancomycin FLAKITA 1 ug/ml: Susceptible Aimee Stevens NP LAB MICROBIOLOGY - GENERAL ORDERABLES Final Result [facility] [address] [place] [address], [place] [phone] * Lipid panel with reflex to direct LDL (02/02/2025 10:16 AM EDT) Cholesterol 170 0 - 200 mg/dL LAB CHEMISTRY METHOD 02/02/2025 12:54 PM EDT [facility] Triglycerides 124 0 - 150 mg/dL LAB CHEMISTRY METHOD 02/02/2025 12:54 PM EDT [facility] HDL 64 >=40 mg/dL LAB CHEMISTRY METHOD 02/02/2025 12:54 PM EDT [facility] LDL Calculated 81 0 - 100 mg/dL LAB CHEMISTRY METHOD 02/02/2025 12:54 PM EDT [facility] VLDL Cholesterol Anupam 24.8 mg/dL LAB CHEMISTRY METHOD 02/02/2025 12:54 PM EDT [facility] Non HDL Chol. (LDL+VLDL) 106 <145 mg/dL LAB CHEMISTRY METHOD 02/02/2025 12:54 PM EDT [facility] Chol/HDL Ratio 2.7 0.0 - 4.4 LAB CHEMISTRY METHOD 02/02/2025 12:54 PM EDT [facility] Blood Venous blood specimen / Unknown Venipuncture / Unknown 02/02/2025 10:16 AM EDT 02/02/2025 10:16 AM EDT Avani Banks MD LAB BLOOD ORDERABLES Final Resul t [facility] [address] [place] [address], * Falls Risk Assessment (02/16/2024) Falls Risk Assessment Abstracted Historical Provider HEALTH MAINTENANCE Final Result * Depression Screening (02/16/2024) Depression Screening Abstracted Historical Provider HEALTH MAINTENANCE Final Result * DXA BONE DENSITY STUDY 1+ SITS AXIAL SKEL (12/22/2022 1:57 PM EDT) Anatomical Region Laterality Modality Bone Densitometr y 10/21/2022 10:4 6 AM EST Narrative 12/22/2022 7:50 PM EDT BONE DENSITY SCAN (DEXA): FINDINGS: Lumbar Spine L2 and L3, L1 and L4 excluded T-score is -0.6. (SD relative to 20-29 y/o adult) Z-score is 2.1. (SD relative to age matched peers) This is considered normal by WHO criteria. Left Hip T-score is -2.0. Z-score is 0.2. This is considered osteopenia by WHO criteria. Comparison exam(s): 03/23/2019 for the hip. 10.5% loss of left hip bone mineral density compared with 2019 which is statistically significant at the 95% confidence level. Lateral survey view of the thoracolumbar spine shows no prominent compression deformities of the visualized vertebral elements. IMPRESSION: IMPRESSION: Osteopenia by WHO criteria. The [facility] of [facility] recommends using National Osteoporosis Foundation (NOF) guidelines in treatment decisions related to osteoporosis. NOF guidelines suggest considering treatment for postmenopausal women and men aged 50 or older presenting with the following: History of hip or vertebral fracture. T-score = -2.5 (DXA) at the femoral neck, total hip, or spine, after appropriate evaluation to exclude secondary causes. Low bone mass (T-score between -1.0 and -2.5 at the femoral neck or spine) AND a 10-year probability of a hip fracture = 3% OR a 10-year probability of a major osteoporosis-related fracture = 20% based on the [place]-adapted WHO algorithm Please note that all treatment decisions require clinical judgment and consideration of individual patient factors, including patient preferences, co-morbidities, previous drug use, risk factors not captured in the FRAX model (e.g., frailty, falls, vitamin D deficiency, increased bone turnover, interval significant decline in bone density) and possible under- or over-estimation of fracture risk by FRAX. Optional alternative screening schedule based on sanjeev Bower., [facility] October 16, 2011 for patients with osteopenia (based on hip BMD T-score) is as follows: * advanced osteopenia (T scores -2.00 to -2.49), BMD testing every year * moderate osteopenia (T scores -1.50 to -1.99), BMD testing every 5 years mild osteopenia or normal BMD (T scores -1.50 and higher), BMD testing every 15 years Procedure Note Prachi Vigil MD - 11/03/2023 BONE DENSITY SCAN (DEXA): FINDINGS: Lumbar Spine L2 and L3, L1 and L4 excluded T-score is -0.6. (SD relative to 20-29 y/o adult) Z-score is 2.1. (SD relative to age matched peers) This is considered normal by WHO criteria. Left Hip T-score is -2.0. Z-score is 0.2. This is considered osteopenia by WHO criteria. Comparison exam(s): 03/23/2019 for the hip. 10.5% loss of left hip bonemineral density compared with 2019 which is statistically significant at the 95%confidence level. Lateral survey view of the thoracolumbar spine shows no prominentcompression deformities of the visualized vertebral elements. IMPRESSION: IMPRESSION: Osteopenia by WHO criteria. The [facility] Department of Internal Medicine recommendsusing National Osteoporosis Foundation (NOF) guidelines in treatment decisions related toosteoporosis. NOF guidelines suggest considering treatment for postmenopausal women and menaged 50 or older presenting with the following: History of hip or vertebral fracture. T-score = -2.5 (DXA) at the femoral neck, total hip, or spine, afterappropriate evaluation to exclude secondary causes. Low bone mass (T-score between -1.0 and -2.5 at the femoral neck or spine)AND a 10-year probability of a hip fracture = 3% OR a 10-year probability of a majorosteoporosis-related fracture = 20% based on the [place]-adapted WHO algorithm Please note that all treatment decisions require clinical judgment andconsideration of individual patient factors, including patient preferences, co- morbidities,previous drug use, risk factors not captured in the FRAX model (e.g., frailty, falls, vitaminD deficiency, increased bone turnover, interval significant decline in bone density) andpossible under- or over-estimation of fracture risk by FRAX. Optional alternative screening schedule based on socorro Bower al., NEJMJanuary 2011 for patients with osteopenia (based on hip BMD T-score) is as follows: * advanced osteopenia (T scores -2.00 to -2.49), BMD testing every year * moderate osteopenia (T scores -1.50 to -1.99), BMD testing every 5years mild osteopenia or normal BMD (T scores -1.50 and higher), BMD testingevery 15 years [facility]ER IMG DXA PROCEDURES Final Result from Last 3 Months or Most Recently Relevant to Health Maintenance Additional Health Concerns Active Problems Noted Date Diagnosed Date Autogenerated Problem 07/23/2025 Insurance MEDICARE [facility] Care Teams Livestock Inspector Relationship Specialty Start Date End Date Avani Banks MD [address] [place] [address] PCP - General 08/06/09
--- OUTSIDE RECORDS SUMMARY | 2025-07-26 15:46 | XMS_ITS | Encounter Summary ---
Author Organization [facility] Address [id number] [place] [address] Care Team Providers Care Linotype Worker Name Role Phone Avani Banks MD Primary Care Provider [phone] Reason for Visit * Reason Onset Date Comments surgery 06/06/2025 Encounter Details Date Type Department Care Team (Late st Contact Info) Description 06/06/2025 Telephone Urogynecology - [place] [address] [place] [phone] José Hooks MD 580 [facility] [address] [place] [address] Social History Tobacco Use Types Packs/Day Years [...] as of this encounter Progress Notes * Mary Jane Craig - 07/26/2025 1:25 PM EDT I received a message from Dr. Hooks stating that we may have to cancel the patient's upcoming surgery. PCP sent the patient to the emergency room. * Mary Jane Craig - 07/14/2025 11:06 AM EDT Message left for patient to call the office to further address any questions she may have. * José Hooks MD - 06/06/2025 11:20 AM EDT SURGICAL BOOKING WORKSHEET FOR JOSÉ HOOKS MD UROGYNECOLOGY 06/06/2025 PATIENT SEEN IN [place] Patient's Name: Pallavi Anderson : 1945 Payor information: Payor: MEDICARE / Plan: MEDICARE PART A & B / Product Type: Medicare / Allergies: Allergies Allergen Reactions Oxycodone-Aspirin Other Diagnosis: No diagnosis found. Surgery Procedure Planned: - Vaginal hysterectomy with bilateral salpingo-oophorectomy (CPT 30035) - High uterosacral ligament suspension (Colpopexy, vaginal intra-peritoneal approach) (CPT 03129) - Combined anteroposterior colporrhaphy (CPT 22226) - Possible retropubic midurethral sling (CPT 13547) - Cystourethroscopy (CPT 29028) Special Instructions/Equipment needed: PREOP [] Urodynamics already scheduled [x] Urodynamics [] PNE needed [] Bladder diaries provided today [] Bladder diaries NEEDED [] Urodynamics NOT NEEDED [x] urodynamics review / surgical consult [] okay to sign consent the day of surgery [x] medical clearance [] cardiac clearance [] Other: INTRA-OP [] None [] C- Arm [] Axonics rep [] Bulkamid scope [] Robot [] Janine Rahman PA-C [] Other: POSTOP [x] 2 week postop with Aimee Stevens APRN [x] [address] Hooks [] 2-4 weeks FOLLOW UP with Type of Anesthesia: GENERAL - ETT Stay: Same day discharge Time Needed: 5.5 hrs total = 4.5 hrs operating time (skin incision to skin incision) + 1 hr for room turnover, set-up, anesthesia time, and positioning Urgency: elective Medicaid Sterilization (within 30 days - 180 days) and/or Medicare HI-1 form signed, if needed? N/amedicare Date signed: José Hooks MD 06/06/2025 documented in this encounter Plan of Treatment Upcoming Encounters Date Type Department Care Team (Late st Contact Info) Description 08/21/2025 11:30 AM EST Hospital Encounter [facility] OR [address] [place] [address], [place] [phone] José Hooks MD [address] [address] 08/21/2025 11:30 AM EST - 08/21/2025 4:30 PM EST Surgery [facility] OR [address] [place] [address], [place] [phone] José Hooks MD [address] [address] HYSTERECTOMY VAGINAL BSO [01532 (CPT )] 09/07/2025 3:15 PM EST Office Visit Urogynecology - [address] [phone] Aimee Stevens NP [address] [address] 09/18/2025 11:00 AM EST Office Visit Adult Medicine [place] - [address] [phone] Avani Banks MD [address] [place] [address] 10/03/2025 1:15 PM EST Office Visit Orthopedic Surgery - [address] [phone] Blas Sanchez, DPM [address] [place] [phone] 10/04/2025 11:30 AM EST Office Visit Urogynecology - [place] [address] [place] [address] José Hooks MD [address] [place] [address] Andrey [address] [place] [address] Scheduled Procedures Name Priority Associated Diagnoses Date/Ti [...] chris Goal Care Plan Autogenerated Problem No Gigideepikaadiel Mary Jane documented as of this encounter Visit Diagnoses Diagnosis Uterine prolapse- Primary Uterine prolapse without mention of vaginal wall prolapse Prolapse of anterior vaginal wall SARIKA (stress urinary incontinence, female) Uterine prolapse Uterine prolapse without mention of vaginal wall prolapse Cystocele with rectocele Female stress incontinence documented in this encounter Additional Health Concerns Active Problems Noted Date Diagnosed Date Autogenerated Problem 07/23/2025 documented as of this encounter Care Teams Linotype Worker Relationship Specialty Start Date End Date Avani Banks MD [address] [place] [address] PCP - General 08/06/09 documented as of this encounter
[2025-07-26 16:08] LABS: Troponin-I High Sensitivity 6.8 ng/L (<3.5-17.0)
[2025-07-26 18:06] VITALS: BP 122/74; PULSE 89; RESP 17; TEMP 36.6; O2SAT 95
== END 2025-07-26 18:11 | disposition home or self-care (01) ==
PROVIDERS: Physician Assistant Medical; Emergency Provider Student in an Organized Health Care Education/Training Program; PCP Internal Medicine
DX: I49.9 Cardiac arrhythmia, unspecified (principal); I48.91 Unspecified atrial fibrillation; R94.31 Abnormal electrocardiogram [ECG] [EKG]; D68.59 Other primary thrombophilia; Q39.1 Atresia of esophagus with tracheo-esophageal fistula; K44.9 Diaphragmatic hernia without obstruction or gangrene; Z79.01 Long term (current) use of anticoagulants; Z79.899 Other long term (current) drug therapy
CPT/HCPCS: 36415; 71045; 71275; 80048; 80076; 83690; 83735; 83880; 84443; 84484; 85025; 85610; 85730; 93005; 99285; 99291

== ENCOUNTER → 2025-07-26 11:22 | Outpatient (BNV) | payer MEDICARE, SELFPAY | PROVIDERS: Emergency Provider Student in an Organized Health Care Education/Training Program; PCP Internal Medicine; Visit Provider Internal Medicine | DX: R94.31 Abnormal electrocardiogram [ECG] [EKG] (principal); I48.91 Unspecified atrial fibrillation; I49.1 Atrial premature depolarization; I49.3 Ventricular premature depolarization | CPT/HCPCS: 93010 ==

== ENCOUNTER → 2025-07-26 12:09 | Outpatient (BNV) | payer MEDICARE, SELFPAY | PROVIDERS: Emergency Provider Student in an Organized Health Care Education/Training Program; PCP Internal Medicine; Visit Provider Radiology Diagnostic Radiology | DX: K44.9 Diaphragmatic hernia without obstruction or gangrene (principal); J98.6 Disorders of diaphragm; Q43.8 Other specified congenital malformations of intestine; J98.4 Other disorders of lung | CPT/HCPCS: 71045; 71275 ==

== ENCOUNTER → 2025-07-28 13:50 | Outpatient (REF) | payer MEDICARE, SELFPAY ==
--- OUTSIDE RECORDS SUMMARY | 2025-07-25 13:30 | XMS_ITS | Encounter Summary ---
Author Organization [facility] Address [address] [place] [phone] Care Team Providers Care Bakery Worker Conveyor Line Name Role Phone Avani Banks MD Primary Care Provider [phone] Reason for Visit * Reason Comments Pre-op Exam Encounter Details Date Type Department Care Team (Late st Contact Info) Description 07/25/2025 1:30 PM EDT Consult Urogynecology [address] [phone] Tiffanie Hooks MD 580 [facility] [address] [place] [address] Prolapse of anterior vaginal wall (Primary Dx); Postoperative pain; Uterine prolapse; SARIKA (stress urinary incontinence, female) Social History Tobacco Use Types Packs/Day Years Used Date Smoking Tobacco: Never Smokeless Tobacco: Never Alcohol Use Standard Drinks/Week Comments No 0 (1 standard drink = 0.6 oz pur e alcohol) Comments No Sex and Gender Information Value Date Recorded Sex Assigned at Not on file Legal Sex Female 12:25 PM EST Gender Identity Not on file Sexual Orientation Not on file documented as of this encounter Last Filed Vital Signs Vital Sign Reading Time Taken Comments Blood Pressure 106/82 07/25/2025 1:27 PM EDT Pulse 70 07/25/2025 1:27 PM EDT Temperature - - Respiratory Rate - - Oxygen Saturation - - Inhaled Oxygen Concentration - - Weight - - Height - - Body Mass Index - - documented in this encounter Ordered Prescriptions Prescription Sig Dispense Quantity Refills Last Filled Start Date End Date acetaminophen (TYLENOL) 500 mg tablet Take 1 tablet (500 mg total) by mouth every 8 (eight) hours. Please take two tablets every 8 hours for the first few days after surgery, then as needed 60 tablet 1 07/25/2025 traMADoL (ULTRAM) 50 mg tabletIndications :pain Take 0.5 tablets (25 mg total) by mouth every 8 (eight) hours if needed for severe pain. Max Daily Amount: 75 mg 5 tablet 07/25/2025 polyethylene glycol (PEG) 17 gram/dose oral powder Take 17 g by mouth 1 (one) time each day. Please take daily after surgery 116 g 1 07/25/2025 ibuprofen (ADVIL,MOTRIN) 800 mg tablet Take 1 tablet (800 mg total) by mouth every 8 (eight) hours. Take 800mg every 8 hours for the first few days after surgery - stagger with acetaminophen - then as needed 60 tablet 1 07/25/2025 docusate sodium (COLACE) 100 mg capsule Take 1 capsule (100 mg total) by mouth 2 (two) times a day. Please take one capsule twice daily after surgery 60 each 1 07/25/2025 07/26/20 25 documented in this encounter Plan of Treatment Upcoming Encounters Date Type Department Care Team (Late st Contact Info) Description 08/21/2025 11:30 AM EST Hospital Encounter [facility] [place] [address] [place] [address], [place] [phone] Tiffanie Hooks MD [address] [address] 08/21/2025 11:30 AM EST - 08/21/2025 4:30 PM EST Surgery [facility] OR [address] [place] [phone] Tiffanie Hooks MD [address] [address] HYSTERECTOMY VAGINAL BSO [50759 (CPT )] 09/07/2025 3:15 PM EST Office Visit Urogynecology [address] [phone] Aimee Stevens NP 580 [facility] [address] [place] [address] 09/18/2025 11:00 AM EST Office Visit Adult Medicine [address] [phone] Avani Banks MD [address] [place] [address] 10/03/2025 1:15 PM EST Office Visit Orthopedic Surgery - [address] [phone] Blas Sanchez DPKeely [address] [place] [phone] 10/04/2025 11:30 AM EST Office Visit Urogynecology [address] [phone] Tiffanie Hooks MD 580 [facility] [address] [place] [address] Scheduled Procedures Name Priority Associated Diagnoses Date/Ti me HYSTERECTOMY VAGINAL BSO Uterine prolapse Cystocele with rectocele Female stress incontinence 08/21/2025 11:30 AM EST COLPOPEXY VAGINAL INTRAPERITONEAL Uterine prolapse Cystocele with rectocele Female stress incontinence 08/21/2025 11:30 AM EST COLPORRHAPHY ANTERIOR POSTERIOR Uterine prolapse Cystocele with rectocele Female stress incontinence 08/21/2025 11:30 AM EST CYSTOSCOPY Uterine prolapse Cystocele with rectocele Female stress incontinence 08/21/2025 11:30 AM EST SLING SUBURETHRAL Uterine prolapse Cystocele with rectocele Female stress incontinence 08/21/2025 11:30 AM EST documented as of this encounter Visit Diagnoses Diagnosis Prolapse of anterior vaginal wall- Primary Postoperative pain Other acute postoperative pain Uterine prolapse Uterine prolapse without mention of vaginal wall prolapse SARIKA (stress urinary incontinence, female) Uterine prolapse Uterine prolapse without mention of vaginal wall prolapse Cystocele with rectocele Female stress incontinence documented in this encounter Care Teams Bakery Worker Conveyor Line Relationship Specialty Start Date End Date Avani Banks MD 4 [place] [address] PCP - General 08/06/09 documented as of this encounter
--- OUTSIDE RECORDS SUMMARY | 2025-07-26 10:00 | XMS_ITS | Encounter Summary ---
Author Organization [facility] Address [address] [place] [address] Care Team Providers Care Corrective And Manual Arts Therapist Name Role Phone Avani Banks MD Primary Care Provider Reason for Visit * Reason Comments Pre-op Exam Dr Hooks 08/21/25 Hys terectomy Encounter Details Date Type Department Care Team (Late st Contact Info) Description 07/26/2025 10:00 AM EDT Consult Adult Medicine [address] [phone] Avani Banks MD [address] [place] [id number] Pre-op examination (Primary Dx); Dizziness; Atrial fibrillation, unspecified type (CMS/HCC V24, CMS/HCC V28) Social History Tobacco Use Types Packs/Day Years Used Date Smoking Tobacco: Never Smokeless Tobacco: Never Tobacco Cessation:Counseling Given: Not Answered Alcohol Use Standard Drinks/Week Comments No 0 [...] Sign Reading Time Taken Comments Blood Pressure 118/76 07/26/2025 10:20 AM EDT Pulse 120 07/26/2025 10:20 AM EDT irregular Temperature 36.3 C (97.4 F) 07/26/2025 10:20 AM EDT Respiratory Rate 14 07/26/2025 10:2 0 AM EDT Oxygen Saturation 96% 07/26/2025 10: 20 AM EDT Inhaled Oxygen Concentration - - Weight 58.2 kg (128 lb 3.2 oz) 07/26/20 10:20 AM EDT Height 152.4 cm (5') 07/26/2025 10:20 AM EDT Body Mass Index 25.04 07/26/2025 10:20 AM EDT documented in this encounter Progress Notes * Avani Banks MD - 07/26/2025 10:00 AM EDT CHIEF COMPLAINT: Pre-op Exam (Dr Hooks 08/21/25 Hysterectomy) IDENTIFIER: Pallavi Anderson is a 80 y.o. old female. HPI: Although this appointment was initially booked as a preoperative evaluation for patient's ongoing incontinence/hematuria, I was alerted by my MA regarding patient's abnormal EKG . I reviewed EKG which showed a flutter/A-fib with rapid ventricular response at 169 bpm and a PVC. Upon my questioning, patient reported that she is not feeling well over the past 2 to 3 days, some palpitations, she developed significant dizziness this morning but lasting short duration. She denied chest pain, syncopal presyncopal episodes. She is compliant with her medications. Patient well-known to me she has complex medical history, with recent loss of her beloved . Today patient accompanied by Ross, whom I know well. ROS: GENERAL: Negative for malaise, significant weight loss and fever RESPIRATORY: No cough, wheezing or shortness of breath CARDIOVASCULAR: See HPI GI: No abdominal pain no bleeding PSYCH: See HPI, patient however is very well supported by multiple family members HEMATOLOGY/LYMPHOLOGY: No bleeding ENDOCRINE: Negative for cold or heat intolerance, polyuria, polydipsia and goiter NEURO: No persistent headache, fainting, seizures, strokes, TIAs, weakness, numbness or tingling PAST MEDICAL HISTORY: Patient Active Problem List Diagnosis Date Noted Hematuria 12/21/2019 Polymyalgia rheumatica (CMS/HCC V24) 03/30/2013 Osteoarthritis, 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 Cervical osteoarthritis 01/28/2013 Pure hypercholesterolemia 11/04/2010 Osteoporosis 02/12/2010 Depression 02/12/2010 SOCIAL HISTORY: Social History Tobacco Use Smoking status: Never Smokeless tobacco: Never Substance Use Topics Alcohol use: No FAMILY HISTORY: Family Status Relation Name Status Aunt p half-aunt 40s Father (Not Specified) Mother (Not Specified) MGM (Not Specified) Aunt (Not Specified) Aunt (Not Specified) Neg Hx (Not Specified) No partnership data on file Family History[1] ACTIVE MEDICATIONS: Medications Taking[2] ALLERGIES: Oxycodone-aspirin PHYSICAL EXAM: Blood pressure 118/76, pulse (!) 120, temperature 36.3 ??C (97.4 ??F), temperature source Temporal,resp. rate 14, height 1.524 m (60 ), weight 58.2 kg (128 lb 3.2 oz), SpO2 96%. Body mass index is 25.04 kg/m??. Plan is deferred until next visit APPEARANCE: Alert and in no acute distress, smiling, well hydrated, well groomed NECK: No JVD HEART: Rapid heartbeat, at 1 point I got a reading of 180, repeated examination showed heart rate 98 with frequent PVC LUNG: clear to auscultation bilaterally ABDOMEN: Bowel sounds normoactive, no bruits and soft, non-tender, without organomegaly or palpablemasses EXTREMITIES: No edema NEURO: Awake, alert and oriented x 3, reflexes symmetrical, and no jitteriness, no tremor grossly nonfocal examination LABS: No results found for: WBC , HGB , HCT , MCV , PLT Lab Results Component Value Date AST 25 08/11/2024 ALT 26 08/11/2024 Wt Readings from Last 5 Encounters: 07/26/25 58.2 kg (128 lb 3.2 oz) 06/19/25 59 kg (130 lb) 03/27/25 58.1 kg (128 lb) 03/09/25 58.1 kg (128 lb) 02/16/25 58.1 kg (128 lb) BP Readings from Last 5 Encounters: 07/26/25 118/76 07/25/25 106/82 06/19/25 110/52 06/06/25 (!) 157/113 04/18/25 130/80 EKG today showed A-fib with ventricular rate 169 with PVC IMPRESSION: 1. Pre-op examination 2. Dizziness 3. Atrial fibrillation, unspecified type (CMS/HCC V24, CMS/HCC V28) PLAN: Although this appointment was initially booked as a preoperative evaluation for patient's ongoing incontinence/hematuria, I was alerted by my MA regarding patient's abnormal EKG . I reviewed EKG which showed a flutter/A-fib with rapid ventricular response at 169 bpm and a PVC. Upon my questioning, patient reported that she is not feeling well over the past 2 to 3 days, some palpitations, she developed significant dizziness this morning but lasting short duration. She denied chest pain, syncopal presyncopal episodes. She is compliant with her medications. Patient well-known to me she has complex medical history, with recent loss of her beloved . Today patient accompanied by Ross, whom I know well. Patient was immediately evaluated, patient is hemodynamically stable O2 saturation 96% on room air Repeat examination showed significant variation in heart rate, with frequent PVC. I discussed the case with patient and daughter, I recommended immediate ER evaluation. Patient declined ambulance transportation, and patient does not appears to be clinically stable at this time. Repeat heart rate was not as high, after repeated measurement. Verbal contract established that daughter will transport patient to [place] emergency room (at patient/family strong request), without any delay. I personally escorted patient into their private vehicle. Copy of patient's EKG was given to the family. We called and alerted according to ER staff. We will also notify urogynecologist office. Orders Placed This Encounter Procedures ECG 12 lead Reason for Exam:: Pre-Procedure ADDITIONAL ORDERS: None Avani Banks MD on 07/26/2025 at 11:19 AM EDT [1] Family History Problem Relation Name Age of Onset Breast cancer Aunt p half-aunt 40s x2 paternal Other (Other: Alzheimer's) Father at 87 Arthritis Mother Pancreatic cancer Mother Other (Other: pancreatic cancer) Mother at 84 Arthritis Maternal Grandmother Other (Other: sudden at age 70') Aunt no details at all Colon cancer Aunt Ovarian cancer Neg Hx Prostate cancer Neg Hx Uterine cancer Neg Hx [2] Outpatient Medications Marked as Taking for the 07/26/25 encounter (Consult) with Avani Banks MD Medication Sig Dispense Refill acetaminophen (TYLENOL) 500 mg tablet Take 1 tablet (500 mg total) by mouth every 8 (eight) hours. Please take two tablets every 8 hours for the first few days after surgery, then as needed 60 tablet1 ammonium lactate (AmLactin) 12 % lotion Apply topically if needed for dry skin. 400 g 0 buPROPion (WELLBUTRIN) 75 mg tablet Take 1 tablet (75 mg total) by mouth 1 (one) time each day. 90 tablet 1 cholecalciferol (VITAMIN D-3) 50 mcg (2,000 unit) tablet TAKE ONE TABLET BY MOUTH EVERY DAY 90 tablet 1 estradioL (ESTRACE) 0.01 % (0.1 mg/gram) vaginal cream Insert 0.5 g into the vagina 1 (one) time each day. Please place 0.5g (a pea-sized amount) on your finger and place inside the vagina for 2 weeks at night, and then twice a week at night 42.5 g 3 hydrocortisone 2.5 % cream Apply topically 2 (two) times a day if needed for irritation or rash. 30g 2 ibuprofen (ADVIL,MOTRIN) 800 mg tablet Take 1 tablet (800 mg total) by mouth every 8 (eight) hours.Take 800mg every 8 hours for the first few days after surgery - stagger with acetaminophen - then as needed 60 tablet 1 ketoconazole (NIZORAL) 2 % shampoo Apply thin film to scalp, leave on for 5 minutes, then rinse daily for 3 months 60 mL 2 latanoprost (XALATAN) 0.005 % ophthalmic solution Administer 1 drop into both eyes at bedtime. Prescribed in opthalmology polyethylene glycol (PEG) 17 gram/dose oral powder Take 17 g by mouth 1 (one) time each day. Pleasetake daily after surgery 116 g 1 simvastatin (ZOCOR) 40 mg tablet TAKE ONE TABLET BY MOUTH DAILY AT BEDTIME 90 tablet 1 trospium (SANCTURA) 20 mg tablet Take 1 tablet (20 mg total) by mouth 2 (two) times a day. 180 each0 venlafaxine (EFFEXOR) 50 mg tablet Take 1 tablet (50 mg total) by mouth 1 (one) time each day. 90 tablet 1 * Rhonda Yarbrough RN - 07/26/2025 10:00 AM EDT Called [facility] with and expect for this pt. New onset A-fib pt. Declining ambulance , daughter will take her . No cp or sob, skin warm and dry , no c/o fever or chills. documented in this encounter Plan of Treatment Upcoming Encounters Date Type Department Care Team (Late st Contact Info) Description 08/21/2025 11:30 AM EST Hospital Encounter [address] [phone] Tiffanie Hooks MD [address] [address] 08/21/2025 11:30 AM EST - 08/21/2025 4:30 PM EST Surgery [address] [phone] Tiffanie Hooks MD [address] [address] HYSTERECTOMY VAGINAL BSO [26506 (CPT )] 09/07/2025 3:15 PM EST Office Visit Urogynecology [address] [phone] Aimee Stevens NP [address] [address] 09/18/2025 11:00 AM EST Office Visit Adult Medicine [address] [phone] Avani Banks MD [address] [place] [address] 10/03/2025 1:15 PM EST Office Visit Orthopedic Surgery - [address] [phone] Blas Sanchez, FRANCISCA [address] [place] [phone] 10/04/2025 11:30 AM EST Office Visit Urogynecology - [place] [phone] [place] [phone] Tiffanie Hooks MD [address] [place] [address] [address] [place] [address] Scheduled Procedures Name Priority Associated Diagnoses Date/Ti [...] AM EST documented as of this encounter Procedures Procedure Name Priority Date/Time Associated Diagnosis Comments ECG 12-LEAD Routine 07/26/2025 11:23 AM EDT Pre-op examination documented in this encounter Results * ECG 12 lead (07/26/2025 11:23 AM EDT) Narrative Avani Banks MD - 07/26/2025 11:23 AM EDT EKG in my office showed atrial fibrillation with rapid ventricular response of 169, with PVC. us Avani Banks MD ECG ORDERABLES Final Result documented in this encounter Visit Diagnoses Diagnosis Pre-op examination- Primary Dizziness Dizziness and giddiness Atrial fibrillation, unspecified type (CMS/HCC V24, CMS/HCC V28) Uterine prolapse Uterine prolapse without mention of vaginal wall prolapse Cystocele with rectocele Female stress incontinence documented in this encounter Discontinued Medications Medication Sig Discontinue Reason Start Date End Da te predniSONE (DELTASONE) 20 mg tablet Take 60 mg PO daily for 3 days, then take 40 mg PO daily for 3 days, then 20 mg PO daily for 3 days, then stop Therapy completed 06/19/2025 07/26/2025 docusate sodium (COLACE) 100 mg capsule Take 1 capsule (100 mg total) by mouth 2 (two) times a day. Please take one capsule twice daily after surgery Duplicate order 07/25/2025 07/26/2025 documented as of this encounter Care Teams Corrective And Manual Arts Therapist Relationship Specialty Start Date End Date Avani Banks MD [address] [place] [address] PCP - General 08/06/09 documented as of this encounter
--- NOTE | 2025-07-28 13:53 | HM_ITS ---
Conclusion: 1. Patient was monitored for total period of 3 days 2. Baseline was normal sinus rhythm with average heart rate of 58 beats per minute 3. Intermittent episodes of atrial fibrillation noted with total burden of 1.9% with fastest heart rate of 158 beats per minute 4. Occasional PACs and PVCs noted 5. No significant pauses noted but frequent sinus bradycardia noted with 73% of the time heart rate below 60 beats per minute 6. No patient reported events MTDD
--- NOTE | 2025-07-28 13:53 | CA_ITS ---
Transthoracic Echocardiogram Patient (Last, First, Middle): Pallavi Anderson S Gender: Female Date of : 1945 Age: 80 Procedure Date: 07/28/2025 Procedure Type: Transthoracic Echocardiogram Location: OP Height: 152. cm Weight: 58.06 kg BSA: 1.54 m2 Heart Rate: 143 bpm BP: 125 / 90 mmHg Cook Tortilla: ZACKERY Referring MD: Romel Guadarrama MD Symptoms: I48.0 - Paroxysmal atrial fibrillation Study Quality: Adequate ECG Rhythm: Atrial Fibrillation w RVR Conclusions: - LVEF difficult to assess due to atrial fibrillation with rapid rate, but probably preserved. - There is moderate calcification of the aortic valve. Findings Left Ventricle Normal left ventricular cavity size. There is mildly increased left ventricular wall thickness. Regional wall motion abnormalities can not be excluded due to suboptimal endocardial definition. Diastolic function is indeterminate on the basis of available data. There is moderate septal asymmetric hypertrophy. LVEF difficult to assess due to atrial fibrillation with rapid rate, but probably preserved. Right Ventricle Normal right ventricular cavity size and systolic function. Atria Both atria are normal in size. Aortic Valve There is moderate calcification of the aortic valve. There is no aortic valve stenosis. There is no aortic valve regurgitation. Mitral Valve There is mild mitral annular calcification. There is no mitral valve regurgitation. There is no mitral valve stenosis. Pulmonic Valve The pulmonic valve is likely normal. Tricuspid Valve There is mild tricuspid valve regurgitation. There is no evidence of pulmonary hypertension. Great Vessels The asc aorta and aortic arch are normal in size. Venous The inferior vena cava is normal in size and collapses greater than 50% with inspiration. Pericardium/Pleural There is no evidence of pericardial effusion. Prior Study Comparison No prior study available for comparison. Measurements 2D Linear Measurements IVSd: 1.53 0.6-0.9/0.6-1.0 cm LVIDd: 3.06 3.9-5.3/4.2-5.9 cm LVIDd Index: 1.99 2.4-3.2/2.2-3.1 cm/m2 LVIDs: 1.93 2.0-3.6 cm LVPWd: 1.18 0.7-1.1 cm LA Diam: 3.10 2.7-3.8/3.0-4.0 cm LAIDs Index: 2.01 1.5-2.3 cm/m2 LV Mass: 169.99 67-162/88-224 g LV Mass Index: 110.38 43-95/49-115 g/m2 LVOT Diam: 1.90 3.0+(-)1.3 cm 2D Systolic Function EF 4C: 58.70 >55% EF 2C: 23.50 >55% EF BiP: 43.20 >55% Mitral Valve MV Pk E: 1.18 MV Decel Time: 125.00 E'Lateral: 3.99 E'Medial: 2.99 E/E' Med: 39.50 E/E' Lat: 29.60 PHT: 37.00 MVA PHT: 5.95 Decel Hamlin: 10.38 Aortic Valve AoV Pk Fortino: 1.25 AoV Mn Fortino: 0.91 AoV VTI: 0.17 AoV Pk Grad: 6.00 Aov Mn Grad: 4.00 ARTIS Cont.VTI: 1.54 LVOT LVOT Pk Fortino: 0.73 LVOT Mn Fortino: 0.50 LVOT VTI: 0.09 LVOT Pk Grad: 2.00 LVOT Mn Grad: 1.00 LVOT Diam: 1.90 LVOT Area: 2.84 Diastolic Function MV Pk E: 1.18 E'Medial: 2.99 E/E' Med: 39.50 E' Laterial: 3.99 E/E' Lat: 29.60 Right Ventricle TAPSE (mm): 17.90 TVS' Fortino: 10.20 Tricuspid Valve TR Pk Fortino: 2.29 TR Pk Grad: 21.00 RA Press: 3.00 RVSP: 24.00 Great Vessels Aorta Sinus of Valsalva: 3.20 2.0-3.5 cm Ao Asc: 3.40 2.1-3.4 cm Ao Arch: 2.50 Pulmonary Valve PV Pk Fortino: 0.72 Peak PV Grad: 2.00 Updated in Other Vendor System with Status of Final Minh Cruz MD electronically signed on 07/30/2025 2:00:11 PM with status of Final
--- OUTSIDE RECORDS SUMMARY | 2025-07-28 14:45 | XMS_ITS | Clinical Summary ---
Author Organization [facility] [address] [facility] Address [address] [place] [phone] Phone Care Team Providers Care Substation Supervisor Name Role Phone Avani Banks MD Primary Care Provider [phone] Allergies Active Allergy Reactions Criticality Noted Date [...] Urology as has not resolved. Polymyalgia rheumatica ([facility] V24) 03/30/2013 Overview (07/08/2024): Onset November 2012, helped with prednisone, tapered off in early 2013. Osteoarthritis, 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 Cervical osteoarthritis 01/28/2013 Pure hypercholesterolemia 11/04/2010 Osteoporosis 02/12/2010 Depression 02/12/2010 Overview (07/08/2024): Hx ECT in 2000 Encounters Date Type Department Care Team Description 07/26/2025 10:00 AM EDT Consult Adult Medicine [address] [phone] Avani Banks MD Pre-op examination (Primary Dx); Dizziness; Atrial fibrillation, unspecified type ([facility] V24, [facility] V28) 07/25/2025 1:30 PM EDT Consult Urogynecology [address] [phone] Tiffanie Hooks MD Prolapse of anterior vaginal wall (Primary Dx); Postoperative pain; Uterine prolapse; SARIKA (stress urinary incontinence, female) 07/25/2025 Telephone Urogynecology - [address]/ [place] [address] Tiffanie Hooks MD 07/21/2025 Telephone Urogynecology [address] [place] [address] Tiffanie Hooks MD 07/18/2025 11:00 AM EDT Office Visit Urogynecolog[address] [place] [address] Aimee Stevens NP Tirone, Taylor, RN Detrusor overactivity (Primary Dx); ASRIKA (stress urinary incontinence, female); Weak urinary stream 07/13/2025 Results Follow-Up Urogyne[address] [place] [address] Palak Steele RN 07/12/2025 1:00 PM EDT Office Visit Urogyne[address] [place] [address] Aimee Stevens NP Tirone, Taylor, RN Acute cystitis without hematuria (Primary Dx); Urinary tract infection without hematuria, site unspecified 07/03/2025 1:00 PM EDT Office Visit Orthopedic Surgery [address] [phone] Blas Sanchez DPM Primary osteoarthritis of both feet (Primary Dx); Acquired hallux valgus of left foot; Acquired hallux valgus of right foot; Dermatophytosis of nail; Pain in toe of right foot; Pain in toe of left foot; Hammer toe of left foot; Acquired hammer toe of right foot; Xerosis of skin; Difficulty walking [R26.2] 06/19/2025 1:00 PM EDT Office Visit [address] [phone] Hanna Rodriguez NP Chronic pain of both knees (Primary Dx); Pseudogout; Seborrheic eczema of scalp; Constipation, unspecified constipation type; Hypotension, unspecified hypotension type 06/06/2025 11:30 AM EDT Office Visit Urogynecology - [place] [address] [place] [address] Tiffanie Hooks MD Uterine prolapse (Primary Dx); Prolapse of anterior vaginal wall; Genitourinary syndrome of menopause 06/06/2025 Telephone Urogynecology [facility] [address] [place] [address] Tiffanie Hooks MD from Last 3 Months [...] negative COLONOSCOPY 2002 PROCEDURE: HISTORICAL COLONOSCOPY; COMMENT: Walton; negative COLONOSCOPY 2013 PROCEDURE: UT COLONOSCOPY FLX DX W/COLLJ SPEC WHEN PFRMD; [...] Description 08/21/2025 11:30 AM EST Hospital Encounter [facility] OR [address] [place] [address], [place] [phone] Tiffanie Hooks MD [address] [address] 08/21/2025 11:30 AM EST - 08/21/2025 4:30 PM EST Surgery [facility] OR [address] [place] [address], [place] [phone] Tiffanie Hooks MD [address] [address] HYSTERECTOMY VAGINAL BSO [20494 (CPT )] 09/07/2025 3:15 PM EST Office Visit Urogynecology - [address] [phone] Aimee Stevens NP [address] [address] 09/18/2025 11:00 AM EST Office Visit Adult Medicine [place] - [address] [phone] Avani Banks MD [address] [place] [address] 10/03/2025 1:15 PM EST Office Visit Orthopedic Surgery - [address] [phone] Blas Sanchez, DPM [address] [place] [phone] 10/04/2025 11:30 AM EST Office Visit Urogynecology - [place] [address] [place] [phone] Tiffanie Hooks MD [address] [place] [address] [address] [place] [address] Scheduled Procedures Name Priority Associated Diagnoses Date/Ti [...] on patient's age to complete this topic Procedures Procedure Name Priority Date/Time Associated Diagnosis [...] (ABNORMAL) Culture urine (07/12/2025 4:08 PM EDT) Culture, Urine >=100,000 CFU/mL Enterococcus faecalis(A) FLAKITA 07/14/2025 11:53 AM EDT [facility] Comment: The organism value for [...] LAB MICROBIOLOGY - GENERAL ORDERABLES Final Result [facility] [address] [place] [address], [place] [phone] * Lipid panel with reflex to direct LDL (02/02/2025 10:16 AM EDT) Cholesterol 170 0 - 200 mg/dL LAB CHEMISTRY METHOD 02/02/2025 12:54 PM EDT [facility] Triglycerides 124 0 - 150 mg/dL LAB CHEMISTRY METHOD 02/02/2025 12:54 PM EDT [facility] HDL 64 >=40 mg/dL LAB CHEMISTRY METHOD 02/02/2025 12:54 PM EDT [facility] LDL Calculated 81 0 - 100 mg/dL LAB CHEMISTRY METHOD 02/02/2025 12:54 PM EDT [facility] VLDL Cholesterol Anupam 24.8 mg/dL LAB CHEMISTRY METHOD 02/02/2025 12:54 PM EDT [facility] Non HDL Chol. (LDL+VLDL) 106 <145 mg/dL LAB CHEMISTRY METHOD 02/02/2025 12:54 PM EDT [facility] Chol/HDL Ratio 2.7 0.0 - 4.4 LAB CHEMISTRY METHOD 02/02/2025 12:54 PM EDT [facility] Blood Venous blood specimen / Unknown Venipuncture / Unknown 02/02/2025 10:16 AM EDT 02/02/2025 10:16 AM EDT Avani Banks MD LAB BLOOD ORDERABLES Final Resul t [facility] [address] [place] [address], [place] [phone] * Falls Risk Assessment (02/16/2024) Falls Risk Assessment Abstracted Historical Provider MD HEALTH MAINTENANCE Final Result * Depression Screening [...] IMPRESSION: IMPRESSION: Osteopenia by WHO criteria. [facility] Department of Internal Medicine recommends using National [...] alternative screening schedule based on sanjeev Bower., [facility] October 16, 2011 for patients with osteopenia [...] IMPRESSION: IMPRESSION: Osteopenia by WHO criteria. [facility] Department of Internal Medicine recommendsusing National Osteoporosis [...] alternative screening schedule based on sanjeev Bower., [facility] for patients with osteopenia (based on hip BMD T-score) is as follows: * advanced osteopenia (T scores -2.00 to -2.49), BMD testing every year * moderate osteopenia (T scores -1.50 to -1.99), BMD testing every 5years mild osteopenia or normal BMD (T scores -1.50 and higher), BMD testingevery 15 years [facility] [place]XA PROCEDURES Final Result from Last 3 Months or Most Recently Relevant to Health Maintenance Insurance MEDICARE [facility] Care Teams Substation Supervisor Relationship Specialty Start Date End Date Avani Banks MD [address] [place] [address] PCP - General 08/06/09
--- OUTSIDE RECORDS SUMMARY | 2025-07-28 14:45 | XMS_ITS | Encounter Summary ---
Author Organization [facility] Address [address] [place] [address] Care Team Providers Care Er Rn Name Role Phone Avani Banks MD Primary Care Provider [phone] Reason for Visit * Reason Onset Date Comments surgery 06/06/2025 Encounter Details Date Type Department Care Team (Late st Contact Info) Description 06/06/2025 Telephone Urogynecology - [place] [address] [place] [phone] José Hooks MD 580 [facility] [address] [place] [address] Social History Tobacco Use Types Packs/Day Years [...] HOOKS MD UROGYNECOLOGY 06/06/2025 PATIENT SEEN IN [place] Patient's Name: Pallavi Anderson : 1945 Payor information: Payor: MEDICARE / Plan: MEDICARE PART A & B / Product Type: Medicare / Allergies: Allergies Allergen Reactions Oxycodone-Aspirin Other Diagnosis: No diagnosis found. Surgery Procedure Planned: - Vaginal hysterectomy with bilateral salpingo-oophorectomy (CPT 31876) - High uterosacral ligament suspension (Colpopexy, vaginal intra-peritoneal approach) (CPT 08130) - Combined anteroposterior colporrhaphy (CPT 22006) - Possible retropubic midurethral sling (CPT 40717) - Cystourethroscopy (CPT 68422) Special Instructions/Equipment needed: PREOP [] Urodynamics already [...] Description 08/21/2025 11:30 AM EST Hospital Encounter [facility] OR [address] [place] [address], [place] [phone] José Hooks MD [address] [address] 08/21/2025 11:30 AM EST - 08/21/2025 4:30 PM EST Surgery [facility] OR [address] [place] [address], [place] [phone] José Hooks MD [address] [address] HYSTERECTOMY VAGINAL BSO [32705 (CPT )] 09/07/2025 3:15 PM EST Office Visit Urogynecology - [address] [phone] Aimee Stevens NP [address] [address] 09/18/2025 11:00 AM EST Office Visit Adult Medicine [place] - [address] [phone] Avani Banks MD [address] [place] [address] 10/03/2025 1:15 PM EST Office Visit Orthopedic Surgery - [address] [phone] Blas Sanchez, DPM [address] [place] [phone] 10/04/2025 11:30 AM EST Office Visit Urogynecology - [place] [address] [place] [address] José Hooks MD [address] [place] [address] [address] [place] [address] Scheduled Procedures Name Priority Associated Diagnoses Date/Ti [...] incontinence documented in this encounter Care Teams Er Rn Relationship Specialty Start Date End Date Avani Banks MD [address] [place] [address] PCP - General 08/06/09 documented as of this encounter
--- OUTSIDE RECORDS SUMMARY | 2025-07-28 14:45 | XMS_ITS | Encounter Summary ---
Author Organization [facility] Address [address] [place] [phone] Care Team Providers Care Paperboard Box Maker Name Role Phone Avani Banks MD Primary Care Provider [phone] Reason for Visit * Reason Onset Date Comments call back 07/21/2025 Encounter Details Date Type Department Care Team (Late st Contact Info) Description 07/21/2025 Telephone Urogynecology - [place] [address] [place] [address] Tiffanie Hooks MD 580 [facility] [address] [place] [address] Social History Tobacco Use Types Packs/Day Years [...] she may have a missed call from Uro/emergency man. Can someone please call her back? documented in this encounter Plan of Treatment Upcoming Encounters Date Type Department Care Team (Late st Contact Info) Description 08/21/2025 11:30 AM EST Hospital Encounter [facility] OR [address] [place] [phone] Tiffanie Hooks MD [address] [address] 08/21/2025 11:30 AM EST - 08/21/2025 4:30 PM EST Surgery [facility] OR [address] [place] [address], [place] [address] Tiffanie Hooks MD [address] [address] HYSTERECTOMY VAGINAL BSO [90919 (CPT )] 09/07/2025 3:15 PM EST Office Visit Urogynecology [address] [phone] Aimee Stevens NP [address] [address] 09/18/2025 11:00 AM EST Office Visit Adult Medicine [address] [phone] Avani Banks MD [address] [place] [address] 10/03/2025 1:15 PM EST Office Visit Orthopedic Surgery [address] [phone] Blas Sanchez DPM [address] [place] [phone] 10/04/2025 11:30 AM EST Office Visit Urogynecology [address] [phone] Tiffanie Hooks MD [address] [address] Scheduled Procedures Name Priority Associated Diagnoses Date/Ti [...] on filedocumented in this encounter Care Teams Paperboard Box Maker Relationship Specialty Start Date End Date Avani Banks MD [address] [place] [phone] PCP - General 08/06/09 documented as of this encounter
--- OUTSIDE RECORDS SUMMARY | 2025-07-28 14:45 | XMS_ITS | Encounter Summary ---
Author Organization [facility] Address [address] [place] [phone] Care Team Providers Care Floor Polisher Name Role Phone Avani Banks MD Primary Care Provider [phone] Encounter Details Date Type Department Care Team (Late st Contact Info) Description 07/13/2025 Results Follow-Up Urogynecology - [address] [place] [phone] Palak Steele RN Social History Tobacco Use [...] Description 08/21/2025 11:30 AM EST Hospital Encounter [facility] [place] [address] [place] [phone] Tiffanie Hooks MD [address] [address] 08/21/2025 11:30 AM EST - 08/21/2025 4:30 PM EST Surgery [facility] OR [address] [place] [phone] Tiffanie Hooks MD [address] [address] HYSTERECTOMY VAGINAL BSO [[id number] (CPT )] 09/07/2025 3:15 PM EST Office Visit Urogynecology [address] [phone] Aimee Stevens NP [address] [address] 09/18/2025 11:00 AM EST Office Visit Adult Medicine [address] [phone] Avani Banks MD [address] [place] [address] 10/03/2025 1:15 PM EST Office Visit Orthopedic Surgery [address] [phone] Blas Sanchez, M [address] [place] [phone] 10/04/2025 11:30 AM EST Office Visit Urogynecology [address] [phone] Tiffanie Hooks MD [address] [address] Scheduled Procedures Name Priority Associated Diagnoses Date/Ti [...] on filedocumented in this encounter Care Teams Floor Polisher Relationship Specialty Start Date End Date Avani Banks MD [address] [place] [address] PCP - General 08/06/09 documented as of this encounter
--- OUTSIDE RECORDS SUMMARY | 2025-07-28 14:45 | XMS_ITS | Encounter Summary ---
Author Organization [facility] Address [address] [place] [phone] Care Team Providers Care Emg Technician Name Role Phone Avani Banks MD Primary Care Provider [phone] Reason for Visit * Reason Onset Date Comments Medication Problem 07/25/2025 Encounter Details Date Type Department Care Team (Late st Contact Info) Description 07/25/2025 Telephone Urogynecology - [place] [address] [place] [phone] Tiffanie Hooks MD 580 [facility] [place], [place] [phone] Social History Tobacco Use Types Packs/Day Years [...] pain. Tiffanie Hooks MD 07/25/2025 * Eve Cooln - 07/25/2025 3:42 PM EDT Pt's pharmacy [...] Description 08/21/2025 11:30 AM EST Hospital Encounter [facility] OR [address] [place] [phone] Tiffanie Hooks MD [address] [address] 08/21/2025 11:30 AM EST - 08/21/2025 4:30 PM EST Surgery [facility] OR [address] [place] [address], [place] [phone] Tiffanie Hooks MD [address] [address] HYSTERECTOMY VAGINAL BSO [[id number] (CPT )] 09/07/2025 3:15 PM EST Office Visit Urogynecology - [address] [phone] Aimee Stevens NP [address] [address] 09/18/2025 11:00 AM EST Office Visit Adult Medicine [place] - [address] [phone] Avani Banks MD [address] [place] [address] 10/03/2025 1:15 PM EST Office Visit Orthopedic Surgery - [place] [address] [place] [phone] Blas Sanchez, DPM [address] [place] [phone] 10/04/2025 11:30 AM EST Office Visit Urogynecology [facility] [address] [place] [phone] Tiffanie Hooks MD [address] [place] [address] Scheduled Procedures Name Priority Associated Diagnoses Date/Ti [...] on filedocumented in this encounter Care Teams Emg Technician Relationship Specialty Start Date End Date Avani Banks MD [address] [place] [address] PCP - General 08/06/09 documented as of this encounter
== END ==
LOC: HO.CARD 13:50
PROVIDERS: PCP Internal Medicine; Visit Provider Internal Medicine Cardiovascular Disease
DX: I48.0 Paroxysmal atrial fibrillation (principal)
CPT/HCPCS: 93242; 93306

== ENCOUNTER → 2025-07-28 13:53 | Outpatient (BNV) | payer MEDICARE, SELFPAY | PROVIDERS: PCP Internal Medicine; Visit Provider Internal Medicine | DX: I48.91 Unspecified atrial fibrillation (principal); I42.2 Other hypertrophic cardiomyopathy; I35.8 Other nonrheumatic aortic valve disorders | CPT/HCPCS: 93306 ==

== ENCOUNTER 2025-08-09 15:01 | Outpatient (AMB) | payer MEDICARE, SELFPAY ==
--- NOTE | 2025-08-09 14:16 | A.OFFVIS_ITS ---
Vital Signs 08/09/25 15:04 Height 5 ft Weight 125 lb 10.616 oz BMI 24.5 BP 130/80 Blood Pressure Location Lt brachial Position Sitting Pulse 52 Intake Visit Reasons: New patient dx afib Intake Note: Pre-op clearance dx new afib hearts feeling ok Environmental Studies Professor Required: No Fitness Instructor: Fitness Instructor Present Accompanied by: Daughter Allergies oxycodone (Percodan) Allergy (Unknown, Verified 07/26/25 11:41) Unknown aspirin (From PERCODAN) Adverse Reaction (Intermediate, Verified 07/26/25 11:41) BEHAVIORAL From PERCODAN Adverse Reaction (Intermediate, Uncoded 07/26/25 11:41) BEHAVIORAL Medication List - Last Reconciled 08/09/25 by Romel Guadarrama MD amiodarone 200 mg PO BID 30 days apixaban (Eliquis) 2.5 mg PO BID 30 days bupropion HCl 75 mg PO DAILY cholecalciferol (vitamin D3) 50 mcg PO DAILY latanoprost 0.005% 1 drp ophthalmic (eye) BEDTIME metoprolol tartrate 25 mg PO BID simvastatin 40 mg PO BEDTIME trospium 20 mg PO BID venlafaxine 50 mg PO DAILY HPI Comments Details: Thank you for referring Pallavi in cardiology consultation today for new onset atrial fibrillation. She is a pleasant 80 year female with prior history of hyperlipidemia with no prior cardiovascular history. She recently been worked up for noncardiac surgery with hysterectomy under general anesthesia. During preop workup she was noted to be in rapid atrial fibrillation. Patient has had no clear symptoms at that time. She was referred to the emergency room and was seen by my colleague. Patient subsequently was started on amiodarone metoprolol therapy and also started on weight based appropriate oral anticoagulation therapy with Eliquis. Patient since then had a Holter monitor which showed intermittent episodes of paroxysmal atrial fibrillation about 1.4% burden. Echocardiogram shows preserved LV ejection fraction. Lupe's having echocardiogram she did feel fluttering in his chest. However she has not felt it since then. She denies any lightheadedness, syncope. 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 She has no exertional chest pain although with limited exercise capacity. No orthopnea, PND, leg edema. No lightheadedness, syncope. Comes both for ma nagement of atrial fibrillation as well as preoperative cardiovascular risk stratification. Review of Systems Const Denies chills, Denies daytime sleepiness, Denies fatigue, Denies fever(s), Denies frequent falls, Denies poor appetite, Denies snoring, Denies stops breathing during sleep, Denies weakness, Denies weight gain and Denies weight loss Eyes Denies loss of vision ENT Denies dizziness and Denies hearing loss Card Denies chest pain, Denies claudication, Denies leg edema, Denies lightheadedness, Denies palpitations, Denies dyspnea, Denies dyspnea on exertion and Denies orthopnea Resp Denies cough, Denies excessive phlegm production, Denies dyspnea, Denies dyspnea on exertion, Denies snoring and Denies wheezing GI Denies abdominal pain, Denies hematochezia, Denies change in bowel habits, Denies nausea and Denies vomiting Denies urinary frequency and Denies dysuria Musc Denies arthralgias, Denies muscle weakness and Denies numbness Skin/Breast Denies nail changes and Denies rash Neuro Denies Abnormal speech present, Denies dizziness, Denies frequent falls, Denies loss of vision, Denies memory loss, Denies numbness and Denies weakness Psych Denies depression and Denies memory loss Endo Denies fatigue and Denies palpitations Mihir/Lymph Reports easy bruising and Reports other (anemia) Aller/Immun Denies wheezing Physical Exam Vital Signs: Last Vital Signs Pulse 52 08/09/25 15:04 BP 130/80 08/09/25 15:04 BMI result Body Mass Index 24.5 Const General: cooperative, comfortable, no acute distress, alert and awake Nutritional Appearance: average body habitus Orientation/consciousness: patient oriented x3 Limitations: ambulation with cane HEENT Head: Yes normocephalic and Yes atraumatic Neck Neck: Yes trachea midline, Yes supple and Yes no JVD Resp Effort & Inspection: normal respiratory effort Auscultation: clear to auscultation bilaterally Cardio Jugular venous distension: no JVD Palpation: normal PMI Rate: bradycardic Rhythm: regular rhythm Heart sounds: S1 normal heart sound present, S2 normal heart sound present, no click, no gallops and Murmur heart sound present systolic early GI Auscultation: normal bowel sounds Skin General skin exam: no rashes or lesions noted Neuro General: patient oriented x3 and no focal motor deficits Speech: No Abnormal speech present Extrem General: Yes no clubbing, cyanosis or edema Office Procedures EKG Details: EKGs shows sinus bradycardia with nonspecific ST-T changes at 52 beats per minute [id number], Complete Assessment & Plan Assessment & Plan (1) Pre-operative cardiovascular examination: Code(s): Z01.810 - Encounter for preprocedural cardiovascular examination Category: Medical Plan: Preoperative cardiovascular risk stratification this elderly woman to undergo noncardiac surgery under general anesthesia with intermediate risk surgery with hysterectomy. Patient has limited exercise capacity given her us arthritis in the knee and therefore does not have any obvious symptoms although she needs further risk stratification with a vasodilating myocardial perfusion imaging to rule out any significant underlying coronary disease that may affect the risk of surgery. This was discussed with her. She is agreeable. This will be scheduled in very near future to assess the risk. If this is within normal limits she is optimized to undergo surgery with low risk for perioperative cardiovascular morbidity mortality. Her Eliquis can be withheld for 3 days prior to the surgery and resumed as soon as possible after surgery with the associated thromboembolic risk. (2) Paroxysmal atrial fibrillation: Code(s): I48.0 - Paroxysmal atrial fibrillation Category: Medical Plan: New onset atrial fibrillation which was detected on a routine EKGs and subsequently started on antiarrhythmic drug therapy with amiodarone and metoprolol with associated bradycardia at this point time. Will reduce metoprolol to Toprol-XL 25 mg daily. Continue amiodarone loading for total of 1 month followed by 200 mg daily beyond that. In the long run we probably will discussed about alternative management including ablation therapy once her noncardiac surgery has been completed and she is stabilized. Avoidance of stimulants was discussed. Advised to monitor her pulse with help of a smart risk device that would help keep a account of her episodes of atrial fibrillation. She does have minor symptoms of fluttering and I have advised. Attention to that. Stress mitigation strategies were discussed. Will follow up in the clinic in 3 months time, sooner PRN. Thank you for allowing me to partake in her care Orders: Orders CA lexiscan stress w zelalem Today Z01.810 - Encounter for preprocedural cardiovascular examination NM cardiolite stress test 2 Weeks R07.9 - Chest pain, unspecified Medications: New metoprolol succinate ER 25 mg PO DAILY 90 tabs 3RF Coding Level of Care Code New Pt Level 4 (59650) Complex EM visit Add On G2211 Diagnoses Pre-operative cardiovascular examination Z01.810 Paroxysmal atrial fibrillation I48.0 CPT Codes EKG - CPT: 33963-[id number], Complete ([id number])
[2025-08-09 15:04] VITALS: BP 130/80; PULSE 52; BMI 24.5
== END 2025-08-09 15:48 | disposition home or self-care (01) ==
LOC: HO.HCS 15:02
PROVIDERS: PCP Internal Medicine; Visit Provider Internal Medicine Cardiovascular Disease
DX: Z01.810 Encounter for preprocedural cardiovascular examination (principal); I48.0 Paroxysmal atrial fibrillation
CPT/HCPCS: 93010; 99214; G2211

== ENCOUNTER → 2025-08-09 15:01 | Outpatient (BNVA) | payer MEDICARE, SELFPAY | PROVIDERS: PCP Internal Medicine; Visit Provider Internal Medicine Cardiovascular Disease | DX: I48.0 Paroxysmal atrial fibrillation (principal); Z01.810 Encounter for preprocedural cardiovascular examination; Z79.01 Long term (current) use of anticoagulants | CPT/HCPCS: 93005; 99212 ==

== ENCOUNTER → 2025-08-11 08:55 | Outpatient (REF) | payer MEDICARE, SELFPAY ==
--- NOTE | ~2025-08-11 | NM_ITS ---
Lexiscan Myocardial perfusion study Indication: Preoperative cardiac evaluation Technique: The patient was brought in for a Lexiscan perfusion study on 08/11/2025 and was injected 0.4 mg of Lexiscan intravenously. Within a minute of this injection 25 mCi of sestamibi was given intravenously. Images were obtained using the SPECT gamma camera interlaced with the gating device. Images were obtained in supine position. Resting perfusion study was performed on 08/14/2025. Patient was administered 25 mCi of sestamibi intravenously at rest. Images were then obtained in supine position. Total DLP 58 mGy-cm. Images were processed with the software and compared side to side in short axis, horizontal long axis and vertical long axis views. Findings: Raw aquisition reviewed. The stress perfusion study showed decreased tracer uptake in the apex; basal inferolateral wall. CT attenuation correction, there is some improvement in the apical uptake and hence could have some artifact components. There is also improvement in the basal inferolateral uptake and that could be related to diaphragmatic attenuation artifact is adjacent subdiaphragmatic uptake. The gated study shows normal LV systolic function with calculated LVEF of 69%. LV cavity is normal in size. The gated study shows normal wall thickening and contraction of segments. Resting study shows minimally reduced tracer uptake at the apex. There is also reduced uptake in the basal inferolateral wall. With CT attenuation correction there is improvement suggestive of probably artifactual etiology for these. Gating at rest reveals normal wall motion with ejection fraction at > 70%. The findings are consistent with mostly fixed appearing defects in the apex/basal inferolateral wall. No clear reversible defects. NM/NM zelalem perf SPECT rest & str Impression: 1. Myocardial perfusion imaging study shows no clear evidence of ischemia. Possible small apical infarct versus artifact. 2. Gated LVEF is 69% during stress; > 70% during rest. 3. Transient ischemic dilatation not present. EKG component of the test reported separately. Electronically signed by: Minh Cruz MD 08/15/2025 11:29 AM TUCKER
--- NOTE | 2025-08-11 08:58 | CA_ITS ---
Acquisition Time: 2025-08-11 09:27:40 Total Exercise Time: 00:02:00 Test Indications: Pre-Op Evaluation,Abnormal ECG Medications: SEE H&P Protocol: LEXISCAN Max HR: 68 BPM 48% of Pred: 139 BPM Max BP: 122/64 mmHG Max Work Load: 1.0 METS Pharmacological stress test with Lexiscan while pt moves her legs and left arm, with reports of feeling dizzy and SOB, with isolated PVCs, with normotensive response to injection. Nondiagnostic EKG for ischemia. In recovery, pt treated with IVP Aminophylline 75 mg to reverse Lexiscan after which pt feeling back to baseline. Nuclear images pending. Test reviewed with Dr. Guadarrama. Referred By: Romel Guadarrama Electronically Signed By: Lester Fishman
--- OUTSIDE RECORDS SUMMARY | 2025-08-11 09:22 | XMS_ITS | Encounter Summary ---
Author Organization [facility] Address [address] [place] [address] Care Team Providers Care Dial Refinisher Name Role Phone Avani Banks MD Primary Care Provider [phone] Reason for Visit * Reason Comments E-prescribe Rx Request Encounter Details Date Type Department Care Team Description 04/29/2018 Refill Adult Medicine [address] [address] Chinyere Eckert NP E-prescribe Rx Request Social History Tobacco Use Types Packs/Day Years Used Date Smoking Tobacco: Never Smokeless Tobacco: Never Alcohol Use Standard Drinks/Week Comments No 0 (1 standard drink = 0.6 oz pur e alcohol) Sex Assigned at Date Recorded Not on file Job Start Date Occupation Industry Not on file Not on file Not on file documented as of this encounter Miscellaneous Notes * Telephone Encounter - Sunny Butler C.M.A. - 04/30/2018 1:19 PM EDT BEAN 04/21/18 * Telephone Encounter - Kathia Higgins - 04/30/2018 9:31 AM EDT Patient would like script to be: E-PRESCRIBED/FAXED TO PHARMACY WHEN WAS THE PATIENT'S LAST APPOINTMENT IN ADULT MEDICINE? 04/21/18 WHEN WAS THE LAST TIME THE PATIENT SAW THEIR PCP? Same as above Does patient have an upcoming appointment? Yes 05/26/18 (THE MEDICATION REQUESTED IS ON THE MED LIST ABOVE) All of the medications requested were on the CURRENT MEDS list Did you check the Pharmacy information above?: YES Patient wants: 30 -day supply Is this a mail order prescription request ? NO If the refill is from a FAXED refill request what is the RX # listed on the fax? N/A Patients current insurance carrier is: [place] / [place] / Product Type: MEDICARE [id number] documented in this encounter Plan of Treatment Not on file documented as of this encounter Visit Diagnoses Not on filedocumented in this encounter Care Teams Dial Refinisher Relationship Specialty Start Date End Date Avani Banks MD [address] [place] [phone] PCP - General 08/06/09 documented as of this encounter
--- OUTSIDE RECORDS SUMMARY | 2025-08-11 09:22 | XMS_ITS | Encounter Summary ---
Author Organization [facility] Address [address] [place] [address] Care Team Providers Care Elementary School Counselor Name Role Phone Avani Banks MD Primary Care Provider [phone] Encounter Details Date Type Department Care Team Description 04/30/2018 Business Doc Medical Records [address] [place] [address] Abstract, Provider Social History Tobacco Use Types Packs/Day Years Used Date Smoking Tobacco: Never Smokeless Tobacco: Never Alcohol Use Standard Drinks/Week Comments No 0 (1 standard drink = 0.6 oz pur e alcohol) Sex Assigned at Date Recorded Not on file Job Start Date Occupation Industry Not on file Not on file Not on file documented as of this encounter Plan of Treatment Not on file documented as of this encounter Visit Diagnoses Not on filedocumented in this encounter Care Teams Elementary School Counselor Relationship Specialty Start Date End Date Avani Banks MD [address] [place], [place] [phone] PCP - General 08/06/09 documented as of this encounter
--- OUTSIDE RECORDS SUMMARY | 2025-08-11 09:22 | XMS_ITS | Encounter Summary ---
Author Organization [facility] Address [address] [place] [address] Care Team Providers Care Protection Manager Name Role Phone Avani Banks MD Primary Care Provider [phone] Encounter Details Date Type Department Care Team Description 07/25/2024 Pt. Non Urgent Medical Question [facility] [address] [place], [place] [phone] Linda De La Torre CNM [address] [place], [place] [phone] Social History Tobacco Use Types Packs/Day Years [...] encounter Miscellaneous Notes * Telephone Encounter - Paola Montgomery R.N. - 07/25/2024 3:59 PM EDTFrom: Pallavi Anderson To: Linda De La Torre CNM Sent: 07/25/2024 2:26 PM EDT Subject: Need appointment I have been having a problem with discharge and bleeding. I would like to make an appointment. My daughter would like to come with me so if one of these dates is available that would be helpful. August 01, , , . I have a hard time hearing so if you could respond back here that would be helpful. Thanks Nan documented in this encounter Plan of Treatment Not on file documented as of this encounter Visit Diagnoses Not on filedocumented in this encounter Care Teams Protection Manager Relationship Specialty Start Date End Date Avani Banks MD [address] [place] [address] PCP - General 08/06/09 documented as of this encounter
--- OUTSIDE RECORDS SUMMARY | 2025-08-11 09:22 | XMS_ITS | Encounter Summary ---
Author Organization [facility] Address [address] [place] [address] Care Team Providers Care Cloth Finishing Range Operator Chief Name Role Phone Avani Banks MD Primary Care Provider [phone] Encounter Details Date Type Department Care Team Description 02/16/2019 Business Doc Medical Records [address] [place] [address] Abstract, Provider Social History Tobacco Use Types [...] on filedocumented in this encounter Care Teams Cloth Finishing Range Operator Chief Relationship Specialty Start Date End Date Avani Banks MD [address] [place], [place] [phone] PCP - General 08/06/09 documented as of this encounter
--- OUTSIDE RECORDS SUMMARY | 2025-08-11 09:22 | XMS_ITS | Encounter Summary ---
Author Organization [facility] Address [address] [place] [address] Care Team Providers Care Format Proofreader Name Role Phone Avani Banks MD Primary Care Provider [phone] Reason for Visit * Reason Onset Date Comments refill request 01/11/2019 Encounter Details Date Type Department Care Team Description 01/11/2019 Refill Adult Medicine [facility] [place] [place] [address] [place] [phone] Avani Banks MD [address] [place], [place] [phone] refill request Social History Tobacco Use Types Packs/Day Years [...] encounter Miscellaneous Notes * Telephone Encounter - Arlene Contreras - 01/11/2019 4:54 PM EDT Last ov 09/27/2018 Lab Results Component Value Date NA 142 03/06/2018 K 4.3 03/06/2018 CO2 28.5 03/06/2018 CL 103 03/06/2018 BUN 25 03/06/2018 CREAT 0.8 03/06/2018 CA 9.9 03/06/2018 GFR > 60 03/06/2018 * Telephone Encounter - Lotus Ruiz - 01/11/2019 11:01 AM EDT Patient would like script to be: E-PRESCRIBED/FAXED TO PHARMACY / Requesting valdemar Brandt WHEN WAS THE PATIENT'S LAST APPOINTMENT IN ADULT MEDICINE? 09/27/2018 WHEN WAS THE LAST TIME THE PATIENT SAW THEIR PCP? 04/21/2018 Does patient have an upcoming appointment? No-patient refused appointment, will call back to book appointment (THE MEDICATION REQUESTED IS ON THE MED LIST ABOVE) All of the medications requested were on the CURRENT MEDS list Did you check the Pharmacy information above?: YES Patient wants: 90 -day supply Is this a mail order prescription request ? NO If the refill is from a FAXED refill request what is the RX # listed on the fax? N/A Patients current insurance carrier is: [place] / [place] / Product Type: MEDICARE [id number] documented in this encounter Plan of Treatment Not on file documented as of this encounter Visit Diagnoses Not on filedocumented in this encounter Care Teams Format Proofreader Relationship Specialty Start Date End Date Avani Banks MD [address] [place] [address] PCP - General 08/06/09 documented as of this encounter
--- OUTSIDE RECORDS SUMMARY | 2025-08-11 09:23 | XMS_ITS | Encounter Summary ---
Author Organization [facility] Address [address] [place] [address] Care Team Providers Care Black Top Machine Operator Name Role Phone Avani Banks MD Primary Care Provider [phone] Encounter Details Date Type Department Care Team Description 11/20/2016 Business Doc Medical Records [address] [place] [address] Abstract, Provider Social History Tobacco Use Types [...] on filedocumented in this encounter Care Teams Black Top Machine Operator Relationship Specialty Start Date End Date Avani Banks MD [address] [place], [place] [phone] PCP - General 08/06/09 documented as of this encounter
--- OUTSIDE RECORDS SUMMARY | 2025-08-11 09:23 | XMS_ITS | Encounter Summary ---
Author Organization [facility] [employer] Address [address] [place] [address] Care Team Providers Care Deputy Director Of Public Works Name Role Phone Avani Banks MD Primary Care Provider [phone] Encounter Details Date Type Department Care Team Description 03/27/2017 Transfer Records Medical Records [address] [place] [address] Abstract, Provider Social History Tobacco Use Types [...] on filedocumented in this encounter Care Teams Deputy Director Of Public Works Relationship Specialty Start Date End Date Avani Banks MD [address] [place], [place] [phone] PCP - General 08/06/09 documented as of this encounter
--- OUTSIDE RECORDS SUMMARY | 2025-08-11 09:23 | XMS_ITS | Encounter Summary ---
Author Organization [facility] Address [address] [place] [address] Care Team Providers Care Crystal Slicer Name Role Phone Avani Banks MD Primary Care Provider [phone] Reason for Referral * Non SANA (Routine) - Authorized/Booked Specialty Diagnoses / Procedures Referred By Contac t Referred To Contact ORTHOPEDICS / Orthopedic Procedures REFERRAL TO ORTHOPEDICS (IN NETWORK) Avani Banks MD [address] [place] [address] Prem Davis PA-C [address] [place] [address] Referral ID Status Reason Start Date Expiration Date V isits Requested Visits Authorized [id number] Authorized/B ooked 02/23/2024 02/22/2025 1 1 Encounter Details Date Type Department Care Team Description 02/23/2024 Orders Only Adult Medicine [address] [phone] Avani Banks MD [address] [place] [address] [phone] Social History Tobacco Use Types Packs/Day Years [...] on filedocumented in this encounter Care Teams Crystal Slicer Relationship Specialty Start Date End Date Avani Banks MD [address] [place] [address] PCP - General 08/06/09 documented as of this encounter
--- OUTSIDE RECORDS SUMMARY | 2025-08-11 09:23 | XMS_ITS | Encounter Summary ---
Author Organization [facility] Address [address] [place] [address] Care Team Providers Care Subway Train Driver Name Role Phone Avani Banks MD Primary Care Provider [phone] Encounter Details Date Type Department Care Team Description 05/05/2011 Hospital Medical Records [address] [place] [address] Eliane Menendez Social History Tobacco Use Types Packs/Day Years [...] on filedocumented in this encounter Care Teams Subway Train Driver Relationship Specialty Start Date End Date Avani Banks MD [address] [place], [place] [phone] PCP - General 08/06/09 documented as of this encounter
--- OUTSIDE RECORDS SUMMARY | 2025-08-11 09:23 | XMS_ITS | Encounter Summary ---
Author Organization [employer] [facility] Address [address] [place] [address] Care Team Providers Care Branch Mechanic Name Role Phone Avani Banks MD Primary Care Provider [phone] Encounter Details Date Type Department Care Team Description 02/19/2018 Business Doc Medical Records [address] [place] [address] Abstract, Provider Social History Tobacco Use Types [...] on filedocumented in this encounter Care Teams Branch Mechanic Relationship Specialty Start Date End Date Avani Banks MD [address] [place], [place] [phone] PCP - General 08/06/09 documented as of this encounter
--- OUTSIDE RECORDS SUMMARY | 2025-08-11 09:23 | XMS_ITS | Encounter Summary ---
Author Organization [facility] Address [address] [place] [address] Care Team Providers Care Resource Teacher Name Role Phone Avani Banks MD Primary Care Provider [phone] Encounter Details Date Type Department Care Team Description 03/14/2016 Orders Only Adult Medicine [facility] [address] [place] [address] [phone] Avani Banks MD [address] [place] [address] [phone] Hyperlipidemia, unspecified hyperlipidemia (Primary Dx) Social History Tobacco Use Types Packs/Day Years [...] on file documented as of this encounter Results * TRANSAMINASE (SGPT)(ALT) UV- (10/24/2016 11:21 AM EST) ALT( SGPT) 17 10 - 60 U/L 10/24/2016 2:22 PM EST [facility] 10/24/2016 11:2 1 AM EST 10/24/2016 11:21 AM EST Avani Banks MD [facility] [address] * TRANSAMINASE (SGOT)(AST) UV- (10/24/2016 11:21 AM EST) AST (SGOT) 19 10 - 42 U/L 10/24/2016 2:22 PM EST [facility] 10/24/2016 11:2 1 AM EST 10/24/2016 11:21 AM EST Avani Banks MD LAB Performing Organization Address [facility] Co de Phone Number [address] * LIPID PROFILE (10/24/2016 11:21 AM EST) Cholesterol 179 0 - 200 mg/dL 10/24/2016 2:22 PM EST [facility] TRIGLYCERIDES 133 0 - 150 mg/dL 10/24/2016 2:22 PM EST [facility] HDL CHOLESTEROL 64 >40 mg/dL 7 2:22 PM EST [facility] LDL CALCULATED 88 0 - 100 mg/dL 10/24/2016 2:22 PM EST [facility] TC-HDLC RATIO 3 0.0 - 4.4 mg/dL 10/24/2016 2:22 PM EST [facility] 10/24/2016 11:2 1 AM EST 10/24/2016 11:21 AM EST Avani Banks MD LAB Performing Organization Address [facility] Co de Phone Number [address] documented in this encounter Visit Diagnoses Diagnosis Hyperlipidemia, unspecified hyperlipidemia- Primary documented in this encounter Care Teams Resource Teacher Relationship Specialty Start Date End Date Avani Banks MD [address] [place] [address] PCP - General 08/06/09 documented as of this encounter
--- OUTSIDE RECORDS SUMMARY | 2025-08-11 09:23 | XMS_ITS | Clinical Summary ---
Author Organization [facility] Address [address] [place] [phone] Phone Care Team Providers Care Store Sales Manager Name Role Phone Avani Banks MD Primary Care Provider [phone] Allergies Active Allergy Reactions Criticality Noted Date [...] Urology as has not resolved. Polymyalgia rheumatica ([facility] V24) 03/30/2013 Overview (07/08/2024): Onset November 2012, helped with prednisone, tapered off in early 2013. Osteoarthritis, 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 Cervical osteoarthritis 01/28/2013 Pure hypercholesterolemia 11/04/2010 Osteoporosis 02/12/2010 Depression 02/12/2010 Overview (07/08/2024): Hx ECT in 2000 Encounters Date Type Department Care Team Description 08/01/2025 11:55 AM EST Lab Draw Station [address] Urinary tract infection without hematuria, site unspecified 08/01/2025 Telephone Urogynecology - [address] [place] [address] Tiffanie Hooks MD 07/26/2025 10:00 AM EDT Consult Adult Medicine [place] - [address] [phone] Avani Banks MD Pre-op examination (Primary Dx); Dizziness; Atrial fibrillation, unspecified type ([facility] V24, [facility] V28) 07/25/2025 1:30 PM EDT Consult Urogynecology - [address] [phone] iTffanie Hooks MD Prolapse of anterior vaginal wall (Primary Dx); Postoperative pain; Uterine prolapse; SARIKA (stress urinary incontinence, female) 07/25/2025 Telephone Urogynecology [address] [place] [address] Tiffanie Hooks MD 07/21/2025 Telephone Urogynecology [address] [place] [phone] Tiffanie Hooks MD 07/18/2025 11:00 AM EDT Office Visit Urogynearlogy [address] [place] [address] Aimee Stevens, Palak Robb RN Detrusor overactivity (Primary Dx); SARIKA (stress urinary incontinence, female); Weak urinary stream 07/13/2025 Results Follow-Up Urogynecology [address] [place] [phone] Palak Steele RN 07/12/2025 1:00 PM EDT Office Visit Urogyne[address] [place] [address] Aimee Stevens, Palak Robb RN Acute cystitis without hematuria (Primary Dx); Urinary tract infection without hematuria, site unspecified 07/03/2025 1:00 PM EDT Office Visit Orthopedic Surgery [address] [phone] Blas Sanchez DPM Primary osteoarthritis of both feet (Primary Dx); Acquired hallux valgus of left foot; Acquired hallux valgus of right foot; Dermatophytosis of nail; Pain in toe of right foot; Pain in toe of left foot; Hammer toe of left foot; Acquired hammer toe of right foot; Xerosis of skin; Difficulty walking [R26.2] 06/19/2025 1:00 PM EDT Office Visit Adult Medicine [address] [phone] Hanna Rodriguez NP Chronic pain of both knees (Primary Dx); Pseudogout; Seborrheic eczema of scalp; Constipation, unspecified constipation type; Hypotension, unspecified hypotension type 06/06/2025 11:30 AM EDT Office Visit Urogynecolog[address] [phone] Tiffanie Hooks MD Uterine prolapse (Primary Dx); Prolapse of anterior vaginal wall; Genitourinary syndrome of menopause 06/06/[address] [phone] Tiffanie Hooks MD from Last 3 Months Immunizations Immunization Administration Dates Next Due Influenza trivalent, 0.5mL ( Fluad) 65yo and older 08/18/2024 Influenza trivalent, 0.5mL ( Fluzone High-dose) 65yo and older 08/18/2023,06/25/2021,06/27/2020,07/19,06/26/2017,08/30/2016 Influenza trivalent, with pr eservative (Fluzone; Afluria) 6mo and older 06/28/2018,09/05/2015,09/01/2014,07/15,09/10/2011,11/04/2010 Influenza, Unspecified 06/28/2018,08/30/2016 nanoRETE SARS-CoV-2 COVID-19, mRNA, LNP-S, preservative free 07/28/2022 [...] negative COLONOSCOPY 2002 PROCEDURE: HISTORICAL COLONOSCOPY; COMMENT: Alisa; negative COLONOSCOPY 2013 PROCEDURE: GA COLONOSCOPY FLX DX W/COLLJ SPEC WHEN PFRMD; [...] skin; COMMENT: BCC - 2007 chest - 2000 under left eye Family History Medical History [...] SAB Ectopic Multiple Livin g Live Births Date Outcome GA Total Labor Labor/2nd/3rd Weight [...] Description 08/21/2025 11:30 AM EST Hospital Encounter [facility] [place] [address] [place] [phone] Tiffanie Hooks MD [address] [address] 08/21/2025 11:30 AM EST - 08/21/2025 4:30 PM EST Surgery [facility] OR [address] [place] [phone] Tiffanie Hooks MD [address] [address] HYSTERECTOMY VAGINAL BSO [83808 (CPT )] 09/07/2025 3:15 PM EST Office Visit Urogynecology [address] [phone] Aimee Stevens NP [address] [address] 09/18/2025 11:00 AM EST Office Visit Adult Medicine [place] - [address] [phone] Avani Banks MD [address] [place] [address] 10/03/2025 1:15 PM EST Office Visit Orthopedic Surgery - [place] 250 175 [facility] 250 [place] [address] Blas Sanchez, DPKeely 175 [facility] 250 [place] [phone] 10/04/2025 11:30 AM EST Office Visit Urogynecology [facility] [address] [place] [address] Tiffanie Hooks MD 580 [facility] 205 [place] [address] Scheduled Procedures Name Priority Associated Diagnoses Date/Ti [...] 02/16/2024 COVID-19 Vaccine (6 - Pfizer risk 2024- season) 2026 07/07/2025, 07/28/2022, 06/26/2021, Additional history [...] Procedure Name Priority Date/Time Associated Diagnosis Comments RAHMAN URINE CULTURE TUBE Routine 08/01/2025 4:04 PM EST Urinary tract infection without hematuria, site unspecified ECG 12-LEAD Routine 07/26/2025 11:23 AM EDT Pre-op examination EXTERNAL CT REPORT 07/26/[address] REPORT 07/26/2025 CULTURE URINE Routine 07/12/2025 4:08 PM EDT Urinary tract infection without hematuria, site unspecified LIPID PANEL WITH REFLEX TO DIRECT LDL Routine 02/02/2025 10:16 AM EDT Pure hypercholesterolemia HM DEPRESSION SCREENING Routine 02/16/2024 FALLS RISK ASSESSMENT Routine 02/16/2024 DXA BONE DENSITY STUDY 1+ SITS AXIAL SKEL Routine 12/22/2022 1:57 PM EDT Age-related osteoporosis without current pathological fracture from Last 3 Months or Most Recently Relevant to Health Maintenance Results * Rahman urine culture tube (08/01/2025 4:04 PM EST) Extra Tube Hold for add-ons. 08/01/2025 7:01 PM EST [facility] Comment:Auto resulted. Urine Urine specimen obtained by clean catch procedure / Unknown Non-blood Collection / Unknown 08/01/2025 4:04 PM EST 08/01/2025 4:04 PM EST Tiffanie Hooks MD LAB URINE ORDERABLES Final Resul t [facility] [address] [place] [address], [place] [phone] * ECG 12 lead (07/26/2025 11:23 AM EDT) Narrative Avani Banks MD - 07/26/2025 11:23 AM EDT EKG in my office showed atrial fibrillation with rapid ventricular response of 169, with PVC. Avani Banks MD ECG ORDERABLES Final Result * External CT Report (07/26/2025) Only the most recent of2 resultswithin the time period is included. Anatomical Region Laterality Modality Computed Tomogra phy us Provider [facility] CT PROCEDURES Final Result * (ABNORMAL) Culture urine (07/12/2025 4:08 PM EDT) Culture, Urine >=100,000 CFU/mL Enterococcus faecalis(A) FLAKITA 07/14/2025 11:53 AM EDT [facility] Comment: The organism value for [...] Enterococcus faecalis Vancomycin FLAKITA 1 ug/ml: Susceptible YeseniaLeticia Stevens NP LAB MICROBIOLOGY - GENERAL ORDERABLES Final Result [facility] [address] [place] [address], * Lipid panel with reflex to direct LDL (02/02/2025 10:16 AM EDT) Cholesterol 170 0 - 200 mg/dL LAB CHEMISTRY METHOD 02/02/2025 12:54 PM EDT [facility] Triglycerides 124 0 - 150 mg/dL LAB CHEMISTRY METHOD 02/02/2025 12:54 PM EDT [facility] HDL 64 >=40 mg/dL LAB CHEMISTRY METHOD 02/02/2025 12:54 PM T [facility] LDL Calculated 81 0 - 100 mg/dL LAB CHEMISTRY METHOD 02/02/2025 12:54 PM [facility] VLDL Cholesterol Anupam 24.8 mg/dL LAB CHEMISTRY METHOD 02/02/2025 12:54 PM T [facility] Non HDL Chol. (LDL+VLDL) 106 <145 mg/dL LAB CHEMISTRY METHOD 02/02/2025 12:54 PM [facility] Chol/HDL Ratio 2.7 0.0 - 4.4 LAB CHEMISTRY METHOD 02/02/2025 12:54 PM [facility] Blood Venous blood specimen / Unknown Venipuncture / Unknown 02/02/2025 10:16 AM EDT 02/02/2025 10:16 AM EDT Avani Banks MD LAB BLOOD ORDERABLES Final Resul t [facility] [address] [place] [address], * Falls Risk Assessment (02/16/2024) Falls Risk [...] IMPRESSION: IMPRESSION: Osteopenia by WHO criteria. The [facility] Department of Internal Medicine recommends using [...] alternative screening schedule based on sanjeev Bower., [facility] October 16, 2011 for patients with osteopenia [...] IMPRESSION: IMPRESSION: Osteopenia by WHO criteria. The [facility] Department of Internal Medicine recommendsusing National [...] alternative screening schedule based on sanjeev Bower., NEJMJanuary 2011 for patients with osteopenia (based on hip BMD T-score) is as follows: * advanced osteopenia (T scores -2.00 to -2.49), BMD testing every year * moderate osteopenia (T scores -1.50 to -1.99), BMD testing every 5years mild osteopenia or normal BMD (T scores -1.50 and higher), BMD testingevery 15 years Marin KELLER IM DXA PROCEDURES Final Result from Last 3 Months or Most Recently Relevant to Health Maintenance Insurance MEDICARE [facility] Care Teams Store Sales Manager Relationship Specialty Start Date End Date Avani Banks MD [address] [place] [address] PCP - General 08/06/09
--- OUTSIDE RECORDS SUMMARY | 2025-08-11 09:23 | XMS_ITS | Encounter Summary ---
Author Organization [facility] Address [address] [place] [address] Care Team Providers Care Rn Lpn Lvn Name Role Phone Avani Banks MD Primary Care Provider [phone] Encounter Details Date Type Department Care Team Description 04/18/2018 Hospital Medical Records [address] [place] [address] Kymberly Andrade DO Social History Tobacco Use Types Packs/Day Years [...] on filedocumented in this encounter Care Teams Rn Lpn Lvn Relationship Specialty Start Date End Date Avani Banks MD [address] [place], [place] [phone] PCP - General 08/06/09 documented as of this encounter
--- OUTSIDE RECORDS SUMMARY | 2025-08-11 09:24 | XMS_ITS | Encounter Summary ---
Author Organization [facility] Address [address] [place] [phone] Care Team Providers Care Net C Developer Name Role Phone Avani Banks MD Primary Care Provider [phone] Encounter Details Date Type Department Care Team (Late st Contact Info) Description 07/13/2025 Results Follow-Up Urogynecology - [address] [place] [phone] Palak Steele RN Social History Tobacco Use [...] 11:30 AM EST Hospital Encounter [facility] OR [address] [place] [phone] Tiffanie Hooks MD [address] [address] 08/21/2025 11:30 AM EST - 08/21/2025 4:30 PM EST Surgery [facility] OR [address] [place] [phone] Tiffanie Hooks MD [address] [address] HYSTERECTOMY VAGINAL BSO [[id number] (CPT )] 09/07/2025 3:15 PM EST Office Visit Urogynecology [address] [phone] Aimee Stevens NP 580 [facility] 205 [place] [address] 09/18/2025 11:00 AM EST Office Visit Adult Medicine [address] [phone] Avani Banks MD [address] [place] [address] 10/03/2025 1:15 PM EST Office Visit Orthopedic Surgery - [place] [address] [phone] Blas Sanchez, DPM [address] [phone] 10/04/2025 11:30 AM EST Office Visit Urogynecolog[address] [phone] Tiffanie Hooks MD [address] [address] Scheduled Procedures Name Priority Associated Diagnoses Date/Ti [...] on filedocumented in this encounter Care Teams Net C Developer Relationship Specialty Start Date End Date Avani Banks MD [address] [place] [address] PCP - General 08/06/09 documented as of this encounter
--- OUTSIDE RECORDS SUMMARY | 2025-08-11 09:24 | XMS_ITS | Encounter Summary ---
Author Organization [facility] Address [address] [place] [address] Care Team Providers Care Makeup Artist Name Role Phone Avani Banks MD Primary Care Provider [phone] Encounter Details Date Type Department Care Team Description 01/10/2014 Business Doc Medical Records [address] [place] [address] Abstract, Provider Social History Tobacco Use Types [...] on filedocumented in this encounter Care Teams Makeup Artist Relationship Specialty Start Date End Date Avani Banks MD [address] [place], [place] [phone] PCP - General 08/06/09 documented as of this encounter
--- OUTSIDE RECORDS SUMMARY | 2025-08-11 09:24 | XMS_ITS | Encounter Summary ---
Author Organization [facility] Address [address] [place] [phone] Care Team Providers Care Carton Folder Name Role Phone Avani Banks MD Primary Care Provider [phone] Reason for Visit * Reason Onset Date Comments call back 07/21/2025 Encounter Details Date Type Department Care Team (Late st Contact Info) Description 07/21/2025 Telephone Urogynecology - [place] [address] [place] [address] Tiffanie Hooks MD 580 [facility] 205 [place] [address] Social History Tobacco Use Types Packs/Day Years [...] she may have a missed call from Uro/shipping clerk crating. Can someone please call her back? documented in this encounter Plan of Treatment Upcoming Encounters Date Type Department Care Team (Late st Contact Info) Description 08/21/2025 11:30 AM EST Hospital Encounter [facility] OR [address] [place] [phone] Tiffanie Hooks MD [address] [address] 08/21/2025 11:30 AM EST - 08/21/2025 4:30 PM EST Surgery [facility] OR [address] [place] [address], [place] [phone] Tiffanie Hooks MD [address] [address] HYSTERECTOMY VAGINAL BSO [[id number] (CPT )] 09/07/2025 3:15 PM EST Office Visit Urogynecology [address] [phone] Aimee Stevens NP [address] [address] 09/18/2025 11:00 AM EST Office Visit Adult Medicine [address] [phone] Avani Banks MD [address] [place] [address] 10/03/2025 1:15 PM EST Office Visit Orthopedic Surgery - [place] [address] [phone] Blas Sanchez DPM [address] [phone] 10/04/2025 11:30 AM EST Office Visit Urogynecology [address] [phone] Tiffanie Hooks MD [address] [address] Scheduled Procedures Name Priority Associated Diagnoses Date/Ti [...] on filedocumented in this encounter Care Teams Carton Folder Relationship Specialty Start Date End Date Avani Banks MD [address] [place] [address] PCP - General 08/06/09 documented as of this encounter
--- OUTSIDE RECORDS SUMMARY | 2025-08-11 09:25 | XMS_ITS | Encounter Summary ---
Author Organization [email or web address] [facility] Address [address] [place] [address] Care Team Providers Care Chairman Ceo Name Role Phone Avani Banks MD Primary Care Provider [phone] Encounter Details Date Type Department Care Team Description 10/27/2022 Release of Information Medical Records [address] [place] [address] Abstract, Provider Social History Tobacco Use Types Packs/Day Years Used Date Smoking Tobacco: Never Smokeless Tobacco: Never Alcohol Use Standard Drinks/Week Comments No 0 (1 standard drink = 0.6 oz pur e alcohol) Sex Assigned at Date Recorded Not on file Job Start Date Occupation Industry Not on file Not on file Not on file COVID-19 Exposure Response Date Recorded In the last 10 days, have yo u been in contact with someone who was confirmed or suspected to have Coronavirus/COVID-19? No / Unsure 10/21/2022 10:19 AM EST documented as of this encounter Plan of Treatment Not on file documented as of this encounter Visit Diagnoses Not on filedocumented in this encounter Care Teams Chairman Ceo Relationship Specialty Start Date End Date Avani Banks MD [address] [place] [address] PCP - General 08/06/09 documented as of this encounter
--- OUTSIDE RECORDS SUMMARY | 2025-08-11 09:26 | XMS_ITS | Encounter Summary ---
Author Organization [facility] [facility] [facility] Address [address] [place] [address] Care Team Providers Care Camp Manager Name Role Phone Avani Banks MD Primary Care Provider [phone] Encounter Details Date Type Department Care Team Description 01/11/2015 Business Doc Medical Records [address] [place] [address] Abstract, Provider Social History Tobacco Use Types [...] on filedocumented in this encounter Care Teams Camp Manager Relationship Specialty Start Date End Date Avani Banks MD [address] [place], [place] [phone] PCP - General 08/06/09 documented as of this encounter
--- OUTSIDE RECORDS SUMMARY | 2025-08-11 09:27 | XMS_ITS | Encounter Summary ---
Author Organization [employer] [facility] Address [address] [place] [address] Care Team Providers Care Inspector Ball Points Name Role Phone Avani Banks MD Primary Care Provider [phone] Reason for Visit * Reason Comments E-prescribe Rx Request Encounter Details Date Type Department Care Team Description 04/20/2023 Refill Adult Medicine [facility] [address] [place] [address] Marin Hernandez PA-C [address] [place] [address] E-prescribe Rx Request Social History Tobacco Use [...] Recorded In the last 10 days, have evgeny u been in contact with someone who was confirmed or suspected to have Coronavirus/COVID-19? No / Unsure 04/06/2023 1:11 PM EDT documented as of this encounter Miscellaneous Notes * Telephone Encounter - Julissa Melendrez M.A. - 04/21/2023 8:38 AM EDT Last office visit 02/12/23 Next office visit 08/18/23 Lab Results Component Value Date ALB 3.9 02/03/2023 SGOT 25 02/03/2023 SGPT 24 02/03/2023 TBILI 0.8 02/03/2023 ALKPHOS 60 02/03/2023 TP 7.2 02/03/2023 documented in this encounter Plan of Treatment Not on file documented as of this encounter Visit Diagnoses Not on filedocumented in this encounter Care Teams Inspector Ball Points Relationship Specialty Start Date End Date Avani Banks MD [address] [place] [address] PCP - General 08/06/09 documented as of this encounter
--- OUTSIDE RECORDS SUMMARY | 2025-08-11 09:27 | XMS_ITS | Encounter Summary ---
Author Organization [employer] [facility] Address [address] [place] [address] Care Team Providers Care Mass Spectrometry Manager Name Role Phone Avani Banks MD Primary Care Provider [phone] Encounter Details Date Type Department Care Team Description 09/19/2014 Business Doc Medical Records [address] [place] [address] Abstract, Provider Social History Tobacco Use Types [...] on filedocumented in this encounter Care Teams Mass Spectrometry Manager Relationship Specialty Start Date End Date Avani Banks MD [address] [place], [place] [phone] PCP - General 08/06/09 documented as of this encounter
--- OUTSIDE RECORDS SUMMARY | 2025-08-11 09:27 | XMS_ITS | Encounter Summary ---
Author Organization [employer] [facility] Address [address] [place] [place] [address] Care Team Providers Care Electric Stove Installer Name Role Phone Avani Banks MD Primary Care Provider [phone] Encounter Details Date Type Department Care Team Description 09/01/2022 Business Doc Medical Records [address] [place] [address] Abstract, Provider Social History Tobacco Use Types [...] suspected to have Coronavirus/COVID-19? No / Unsure 08/28/2022 2:30 PM EST documented as of this encounter Plan of Treatment Not on file documented as of this encounter Visit Diagnoses Not on filedocumented in this encounter Care Teams Electric Stove Installer Relationship Specialty Start Date End Date Avani Banks MD [address] [place] [address] PCP - General 08/06/09 documented as of this encounter
--- OUTSIDE RECORDS SUMMARY | 2025-08-11 09:28 | XMS_ITS | Encounter Summary ---
Author Organization [facility] Address [address] [place] [address] Care Team Providers Care Senior Site Manager Name Role Phone Avani Banks MD Primary Care Provider [phone] Encounter Details Date Type Department Care Team Description 08/30/2021 Business Doc Medical Records [address] [place] [address] Abstract, Provider Social History Tobacco Use Types Packs/Day Years Used Date Smoking Tobacco: Never Smokeless Tobacco: Never Alcohol Use Standard Drinks/Week Comments No 0 (1 standard drink = 0.6 oz pur e alcohol) Sex Assigned at Date Recorded Not on file Job Start Date Occupation Industry Not on file Not on file Not on file COVID-19 Exposure Response Date Recorded In the last month, have you been in contact with someone who was confirmed or suspected to have Coronavirus / COVID-19? No / Unsure 08/27/2021 1:50 PM EST documented as of this encounter Plan of Treatment Not on file documented as of this encounter Visit Diagnoses Not on filedocumented in this encounter Care Teams Senior Site Manager Relationship Specialty Start Date End Date Avani Banks MD [address] [place] [address] PCP - General 08/06/09 documented as of this encounter
--- OUTSIDE RECORDS SUMMARY | 2025-08-11 09:28 | XMS_ITS | Encounter Summary ---
Author Organization [facility] Address [address] [place] [address] Care Team Providers Care Insight Director Name Role Phone Avani Banks MD Primary Care Provider [phone] Encounter Details Date Type Department Care Team Description 06/18/2020 Pt. Non Urgent Medical Question Adult Medicine [facility] [address] [place] [address] Austyn Cervantes FNP [address] [place] [address] Social History Tobacco Use Types Packs/Day Years [...] encounter Miscellaneous Notes * Telephone Encounter - Evonne Rosales M.A. - 06/18/2020 4:20 PM EDTFrom: Pallavi Anderson To: ANKITA Funez Sent: 06/18/2020 4:19 PM EDT Subject: Question regarding THYROID PROFILE I have a question about THYROID PROFILE resulted on 03/13/20, 5:16 PM. documented in this encounter Plan of Treatment Not on file documented as of this encounter Visit Diagnoses Not on filedocumented in this encounter Care Teams Insight Director Relationship Specialty Start Date End Date Avani Banks MD [address] [place] [id number] PCP - General 08/06/09 documented as of this encounter
--- OUTSIDE RECORDS SUMMARY | 2025-08-11 09:28 | XMS_ITS | Encounter Summary ---
Author Organization [employer] [facility] Address [address] [place] [address] Care Team Providers Care Client Solutions Director Name Role Phone Avani Banks MD Primary Care Provider [phone] Encounter Details Date Type Department Care Team Description 03/14/2014 Orders Only Radiology - [address] [phone] Avani Banks MD [address] [place] [address] [phone] Social History Tobacco Use Types Packs/Day Years [...] on filedocumented in this encounter Care Teams Client Solutions Director Relationship Specialty Start Date End Date Avani Banks MD [address] [place] [address] [phone] PCP - General 08/06/09 documented as of this encounter
--- OUTSIDE RECORDS SUMMARY | 2025-08-11 09:28 | XMS_ITS | Encounter Summary ---
Author Organization [facility] Address [address] [place] [address] Care Team Providers Care Leasing Assistant Name Role Phone Avani Banks MD Primary Care Provider Encounter Details Date Type Department Care Team Description 06/18/2020 Pt. Non Urgent Medical Question Adult Medicine [facility] [address] [place] [phone] Austyn Cervantes FNP [address] [place] [address] Social History Tobacco Use Types Packs/Day Years [...] Encounter - Evonne Rosales M.A. - 06/18/2020 4:21 PM EDTFrom: Pallavi Anderson To: ANKITA Funez Sent: 06/18/2020 4:18 PM EDT Subject: Question regarding THYROID PROFILE I have a question about THYROID PROFILE resulted on 03/13/20, 5:16 PM. It is listed that I had a thyroid profile profile done on is that correct. I called to see if I have a requisition for any lab work now ad they said no. I am confused! Would you call me please? I woul d appreciate it! Thanks ! Nicolase) documented in this encounter Plan of Treatment Not on file documented as of this encounter Visit Diagnoses Not on filedocumented in this encounter Care Teams Leasing Assistant Relationship Specialty Start Date End Date Avani Banks MD [address] [place] [id number] PCP - General 08/06/09 documented as of this encounter
== END ==
LOC: HO.CARD 08:55
PROVIDERS: PCP Internal Medicine; Visit Provider Internal Medicine Cardiovascular Disease
DX: Z01.810 Encounter for preprocedural cardiovascular examination (principal); R07.9 Chest pain, unspecified
CPT/HCPCS: 78452; 93017; A9500; J0280; J2785

== ENCOUNTER → 2025-08-11 08:58 | Outpatient (BNV) | payer MEDICARE, SELFPAY | PROVIDERS: PCP Internal Medicine | DX: I49.3 Ventricular premature depolarization (principal); R06.02 Shortness of breath; R42 Dizziness and giddiness | CPT/HCPCS: 78452; 93016; 93018 ==